=== PATIENT | female | born 1965 | race African-American/Black ===

== ENCOUNTER 2016-12-05 10:00 | Observation (INO) | payer OTHER ==
[2016-12-05 11:06] LABS: #Eosinphils 0.1 thou/uL (0.0-0.7); #Lymphocytes 1.4 thou/uL (1.20-3.40); #Monocytes 0.5 thou/uL (0.11-0.59); #Neutrophils 6.2 thou/uL (1.40-6.50); %Basophils 0.3 % (0.0-1.0); %Eosinophils 1.3 % (0.0-10.0); %Lymphocytes 16.6 % (21.0-51.0); %Monocytes 6.1 % (0.0-10.0); Hematocrit 40.3 % (36.0-47.0); Mean Platelet Volume 8.5 fL (7.4-10.4); Red Blood Cell (RBC) Count 4.41 mill/uL (4.20-5.40); White Blood Cell (WBC) Count 8.2 thou/uL (4.8-10.8)
--- NOTE | 2016-12-05 11:11 | RAD ---
PORTABLE CHEST 1 VIEW: Date: 12/05/16 Time: 1026 hours HISTORY: Altered mental status, dizziness, right arm weakness. FINDINGS/IMPRESSION: Comparison made with exam of 06/25/16. The heart size is borderline. No confluent areas of consolidation, pneumothorax, radha pulmonary ольга ma, or large effusions are seen. There are degenerative changes in the spine. POS: [facility]
[2016-12-05 11:13] LABS: PTT 28.8 SEC (22.9-36.1); Prothrombin Time 12.7 SEC (12.0-14.7)
--- NOTE | 2016-12-05 11:23 | CT ---
CT OF THE BRAIN WITHOUT CONTRAST: Date: 12/05/16 COMPARISON: 08/24/08. HISTORY: Dizziness and right arm weakness. TECHNIQUE: Multiple contiguous axial images were obtained in a CT of the brain without contrast. FINDINGS: The brain is normal in morphology and attenuation without focal lesions or confluent areas of infarc tion. There is no evidence of hydrocephalus, intracranial hemorrhage, or extra-axial fluid collectio n. The calvarium and overlying soft tissues are unremarkable. The visualized paranasal sinuses and mast oid air cells are well aerated. IMPRESSION: No evidence of acute intracranial abnormality. POS: [facility]
[2016-12-05 11:42] LABS: ALT (SGPT) 15 U/L (8-55); Alkaline Phosphatase 62 U/L (40-150); BUN (Urea Nitrogen) 17 mg/dL (9.8-20.1); Bilirubin, Total 0.3 mg/dL (0.2-1.2); CK (CPK) 86 U/L (29-168); Calc. Creatinine Clearance 0 mL/min (70-130); Calcium 8.9 mg/dL (7.8-10.44); Carbon Dioxide 22 mmol/L (22-29); Chloride 106 mmol/L (98-107); Estimated GFR-MDRD 77; Lipase 22 U/L (8-78)
[2016-12-05 11:50] LABS: AST (SGOT) 12 U/L (5-34); Anion Gap 14 mmol/L (10-20); Globulin 3.5 g/dL (2.4-3.5); Protein, Total 7.2 g/dL (6.0-8.3)
--- NOTE | 2016-12-05 13:25 | HP ---
PRIMARY CARE PHYSICIAN: [facility]. REASON FOR ADMISSION: TIA, rule out cerebrovascular accident. HISTORY OF PRESENT ILLNESS: A 51-year-old -[place]er female with a history of hypertension, d yslipidemia, and morbid obesity who presented to emergency room with complaint of right upper extrem ity weakness. The patient is a right handed. This morning she woke up at that time, patient was pe rfectly fine. She was able to do all routine activity. Around 9 a.m. this morning when she went to restroom, she was experiencing right upper extremity weakness. She was not able to hold through ri ght upper extremity. The patient did not have any facial drooping. The patient did not have any sl urred speech. She was feeling a little bit heaviness on her right lower extremity, but she was able to walk without any stumbling. The patient felt a little bit dizzy at home. After that, her sympt oms started, she was not having headache initially, but after emergency room arrival, she was having mild headache. She denies any chest pain, palpitations, and shortness of breath. When she arrived to the emergency room, her weakness on the right upper extremity was completely resolved and she wa s able to function normal. All symptoms resolved in few minutes. At this point, the patient is being admitted to telemetry stroke floor for neuro check and rule out CVA. In the emergency room, this patient had CT brain and chest x-ray, all other routine blood test was n ormal. Patient is also asymptomatic when I saw this patient in the emergency room. REVIEW OF SYSTEMS: The following complete review of systems was negative, unless otherwise mentione d in the HPI or below: Constitutional: Weight loss or gain, ability to conduct usual activities. Skin: Rash, itching. Eyes: Double vision, pain. ENT/Mouth: Nose bleeding, neck stiffness, pain, tenderness. Cardiovascular: Palpitations, dyspnea on exertion, orthopnea. Respiratory: Shortness of breath, wheezing, cough, hemoptysis, fever or night sweats. Gastrointestinal: Poor appetite, abdominal pain, heartburn, nausea, vomiting, constipation, or diar hi. Genitourinary: Urgency, frequency, dysuria, nocturia. Musculoskeletal: Pain, swelling. Neurologic/Psychiatric: Anxiety, depression. Allergy/Immunologic: Skin rash, bleeding tendency. Please see my HPI for pertinent positive and negative. All other review of systems reviewed and neg ative except as mentioned in the HPI. PAST MEDICAL HISTORY: Borderline diabetes. The patient is not on any specific treatment, cardiomyo beverly. As per report, the patient's last ejection fraction is 40%-45%, severe mitral regurgitation, morbid obesity, hypertension, history of nephrolithiasis, dyslipidemia. PAST SURGICAL HISTORY: x3, left knee surgery, kidney stone removal. PAST PSYCHIATRIC HISTORY: Reviewed and negative. SOCIAL HISTORY: Patient lives at home. She is on disability. She drinks alcohol on weekends. She denies any smoking. She denies any other illicit drug abuse. She lives with her daughter. FAMILY HISTORY: Hypertension, diabetes, and coronary artery disease runs among several family membe rs. EMERGENCY ROOM COURSE: The patient is given aspirin 324 mg. ALLERGIES: No known drug allergies. CURRENT HOME MEDICATIONS: Lipitor 10 mg p.o. daily, aspirin 81 mg p.o. daily, Coreg 25 mg p.o. b.i. d., Lasix 40 mg p.o. b.i.d., hydralazine 50 mg twice daily, Imdur 60 mg daily, lisinopril 40 mg at b edtime, and potassium chloride 20 mEq p.o. daily. PHYSICAL EXAMINATION: VITAL SIGNS: Currently, blood pressure 139/100, pulse 78, respiratory rate 18, temperature 97.9, sa turation 98% on room air, and weight 130.8 kilograms. GENERAL: Patient is currently alert and awake, no acute distress. HEAD: Normocephalic, atraumatic. EYES: Pupils round, reactive to light. Extraocular muscles intact. ENT: Oropharynx within normal limits. Moist mucous membranes. No oral lesions. No pharyngeal kari thema, no exudate. NECK: Supple. Range of motion is normal. No meningeal signs of irritation. LUNGS: Clear to auscultation without any rhonchi or rales. CARDIAC: S1, S2 regular without any murmur. ABDOMEN: Morbid obesity limiting examination. No peritoneal sign, no guarding, no rigidity, no tamara ound. BACK: Examination unremarkable, no CVA tenderness. EXTREMITIES: Upper extremity passive movements of all joints are normal. Lower extremity, no edema . Good peripheral pulsation. SKIN: No skin rash. HEMATOLOGICAL SYSTEM: No lymphadenopathy. NEUROLOGIC: Nonfocal examination. Patient is moving all four limbs. Speech normal. Motor and sen sation within normal limits. Reflexes symmetrical. No cerebellar sign. Plantar bilateral flexor. PSYCHIATRIC: Normal affect. HEMATOLOGICAL SYSTEM: No lymphadenopathy. IMAGING AND SIGNIFICANT LABORATORY DATA: 1. CT brain based on my review, no acute intracranial process. Chest x-ray based on my review, no acute cardiopulmonary process, cardiomegaly. 2. CBC: WBC 8.2, hemoglobin 12.9, and platelets 197. INR 0.9. 3. BMP: Sodium 138, potassium 3.8, chloride 106, carbon dioxide 22, BUN 17, creatinine 0.92, gluco se 123, calcium 8.9. 4. LFT: AST 12, ALT 15, alkaline phosphatase 62, albumin 3.7, lipase 22. Cardiac enzymes negative . 5. EKG normal sinus rhythm, left ventricular hypertrophy. Left axis deviation. ASSESSMENT AND PLAN/IMPRESSION: 1. Transient ischemic attack. This patient has mono limb weakness. This patient is right-handed a nd she was having right upper extremity weakness that lasted for few minutes. This patient has [facility] risk factors for stroke including hypertension, dyslipidemia, borderline diabetes, and morbid ob esity. At this point, CT brain is negative and patient's symptoms completely resolved in the emerge ncy room. Most likely this patient has transient ischemic attack. We will rule out cerebrovascular accident. We will keep this patient in the hospital for observation and we will do neuro check sallie ry 4 hourly. We will obtain MRI brain, carotid ultrasound, echocardiography as a part of stroke wor kup. We will check lipid profile tomorrow morning for risk stratification. If the patient remains stable and all investigations remains normal, then we will consider discharging her home tomorrow. Meanwhile, we will continue with aspirin 325 mg p.o. daily, Lipitor 10 mg p.o. at bedtime, hydralazi ne 50 mg twice daily, Coreg 25 mg p.o. b.i.d., Imdur 60 mg p.o. daily, lisinopril 40 mg p.o. daily. We will titrate blood pressure medication while in hospital. 2. Hypertension, currently well controlled. We will continue Coreg 25 mg p.o. twice daily, hydrala zine 50 mg twice daily, isosorbide mononitrate 60 mg p.o. daily, lisinopril 40 mg p.o. at bedtime an d adjust medication as needed. 3. Cardiomyopathy. The patient does have systolic and diastolic dysfunction/heart failure. Dimitris ngo, patient is euvolemic. We will continue Lasix 40 mg p.o. b.i.d. as per home dosage along with C oreg, hydralazine, Imdur, and lisinopril as per home dosage. 4. Moderate mitral regurgitation. The patient is already on Coreg, hydralazine, Imdur and lisinopr il therapy. 5. Dyslipidemia. Check lipid profile tomorrow and continue Lipitor 10 mg p.o. at bedtime. 6. Morbid obesity. Dietary education given, weight loss education given. Healthy lifestyle measur es discussed with the patient. 7. Borderline diabetes. We will check hemoglobin A1c tomorrow. 8. Deep venous thrombosis prophylaxis not needed because we are expecting discharge in 24 hours. 9. Gastrointestinal prophylaxis, Pepcid 20 mg p.o. b.i.d. 10. Code status: The patient is FULL CODE. Patient's daughter is surrogate decision maker. Disposition plan within 24 hours. Plan of care extensively discussed with the patient's family memb er at bedside in the emergency room.
[2016-12-05] MEDS ORDERED: Senokot 8.6 MG TAB PO PRN (14:23)
[2016-12-05] MEDS ORDERED: Ondansetron HCl/PF 4 MG/2 ML Vial IVP PRN (14:23)
[2016-12-05] MEDS ORDERED: Loperamide HCl 2 MG CAP PO PRN (14:23)
[2016-12-05] MEDS ORDERED: Zolpidem Tartrate 5 MG TAB PO PRN (14:23)
[2016-12-05] MEDS ORDERED: Artificial Tears 18 DROP/0.9 ML EA EYE PRN (14:23)
[2016-12-05] MEDS ORDERED: HYDROcodone/Acetaminophen 5/325 mg Tablet PO PRN (14:23)
[2016-12-05] MEDS ORDERED: cloNIDine HCl 0.1 MG TAB PO PRN (14:23)
[2016-12-05] MEDS ORDERED: Ondansetron ODT 4 MG TAB PO PRN (14:23)
[2016-12-05] MEDS ORDERED: Ketorolac Tromethamine 30 MG/ML VIAL IVP PRN (14:23)
[2016-12-05] MEDS ORDERED: Eucerin (Mineral Oil/Petrolatum,White) 30 gm Jar TOP PRN (14:23)
[2016-12-05] MEDS ORDERED: Sodium Chloride 0.65% Nasal 44 ML BOT EA NARE PRN (14:23)
[2016-12-05] MEDS ORDERED: Milk Of Magnesia 30 ML UDCUP PO PRN (14:23)
[2016-12-05] MEDS ORDERED: Diabetic Tussin 200 MG/10 ML UDCUP PO PRN (14:23)
[2016-12-05] MEDS ORDERED: Mag-Al 1200 mg/1200 mg/30 ML UDCUP PO PRN (14:23)
[2016-12-05] MEDS ORDERED: Furosemide 40 MG TAB PO SCH (14:30)
[2016-12-05 14:34] LABS: Bilirubin Negative (Negative); Blood, Urine Negative (Negative); Glucose, Urine (Dipstick) Negative (Negative); Ketone, Urine Negative (Negative); Nitrite Negative (Negative); Protein, Urine (Dipstick) Trace mg/dL (Neg-Trace)
[2016-12-05 15:32] VITALS: BMI 52.0
[2016-12-05] MEDS: Carvedilol 25 MG TAB PO SCH (17:01)
[2016-12-05] MEDS: Acetaminophen 325 MG TAB PO PRN (17:35)
--- NOTE | 2016-12-05 18:42 | ULT ---
EXAM: CAROTID ULTRASOUND 12/05/16 HISTORY: Transient ischemic attack. COMPARISON: None. TECHNIQUE: Sylvester scale, color flow, doppler imaging with spectral waveform analysis performed of the carotid cristy tebral arteries. FINDINGS: RIGHT CAROTID: Intimal thickness of the common carotid artery is 0.10 cm. No significant atherosclerotic disease. P eak systolic velocity of the common carotid artery is 75.3 cm/s. Peak systolic velocity of the inter nal carotid artery is 65.2 cm/s. Systolic ICA/CCA ratio is 0.9. LEFT CAROTID: Intimal thickness of the common carotid artery is 0.10 cm. Peak systolic velocity of the common grossman tid artery is 105.2 cm/s. Peak systolic velocity of the internal carotid artery is 57.0 cm/s. Systol ic ICA/CCA ratio is 0.5. Antegrade flow in bilateral vertebral arteries. IMPRESSION: No sonographic evidence of hemodynamically significant stenosis. POS: [facility]
--- NOTE | 2016-12-05 19:10 | MRI ---
EXAM: BRAIN MRI WITHOUT CONTRAST 12/05/16 HISTORY: Right sided weakness. Transient ischemic attack. COMPARISON: None. TECHNIQUE: Brain MRI is performed without intravenous gadolinium administration. Multisequential, multiplanar i maging is performed. FINDINGS: Central arterial flow voids are maintained. Absent restricted diffusion. Minimal white matter hyperintensities on the axial FLAIR sequence. Adequate aeration of the sinuses and mastoid air cells. No hemorrhage on the axial gradient echo sequence. The calvarium has a normal marrow signal intensity. Midline brain parenchymal structures are unremar kable. IMPRESSION: Absent restricted diffusion. No acute infarct. POS: [facility]
[2016-12-05] MEDS: Famotidine 20 MG TAB PO SCH (20:28)
[2016-12-05] MEDS ORDERED: Lisinopril 20 MG TAB PO SCH (21:00)
[2016-12-05] MEDS ORDERED: Atorvastatin Calcium 10 MG TAB PO SCH (21:00)
[2016-12-06] MEDS: Acetaminophen 325 MG TAB PO PRN (04:04)
[2016-12-06 07:14] LABS: Hemoglobin A1c 5.8 % (4.0-6.0)
[2016-12-06] MEDS ORDERED: Aspirin 325 mg Enteric Coated Tablet PO SCH (09:00)
[2016-12-06] MEDS: Carvedilol 25 MG TAB PO SCH ×2 (10:03→16:02)
[2016-12-06] MEDS: Furosemide 40 MG TAB PO SCH ×2 (10:03→16:02)
[2016-12-06] MEDS: Famotidine 20 MG TAB PO SCH (10:03)
[2016-12-06] MEDS ORDERED: Clopidogrel Bisulfate 75 MG TAB PO SCH (15:45)
[2016-12-06 16:01] VITALS: BP 124/79; TEMP 98.5
--- NOTE | 2016-12-06 17:43 | DIS ---
DATE OF ADMISSION: 12/05/2016 DATE OF DISCHARGE: 12/06/2016 PRIMARY CARE PHYSICIAN: Kyree Narayanan MD DISCHARGE DIAGNOSES: 1. Probable transient ischemic attack. 2. Dyslipidemia. CONDITION OF PATIENT AT THE TIME OF DISCHARGE: Stable. I assessed Ms. Pedroza on the day of discha rge. She denies any chest pain or shortness of breath. Vital signs are stable. S1 and S2 are hear d, regular. Lungs are clear to auscultation bilaterally. Neurologic examination is nonfocal. DISCHARGE MEDICATIONS: Her Lipitor dose was increased to 20 mg at bedtime. Plavix has been started at 75 mg daily. Otherwise, her home medications are continued as dictated on history and physical note from 12/05/2016. HOSPITAL COURSE: Ms. Pedroza is a pleasant 51-year-old lady, who was admitted to [facility] on 12/05/2016 for probable transient ischemic attack. She had right upper extremity weakness. Her symptoms resolved in a few minutes. She did not have recurrence of the symptoms. CT scan of the brain, without contrast, did not reveal any acute intracranial abnormality on 017. She also had MRI of the brain the same day, which did not reveal any acute infarct. Carotid D oppler study on 12/05/2016 did not reveal any hemodynamically significant stenosis. She also had a 2D echocardiogram. The official report is pending. Preliminary report has been called to the floor and indicated that ejection fraction is 50%. She had cholesterol of 235, triglycerides 207, LDL 147, and HDL 47. Her Lipitor dose has been incre ased to 20 mg daily. Because of possible aspirin failure, she has been started on Plavix as well. She is advised to follow up with her primary care provider. I emphasized to her the importance of t aking all the medications regularly. She expressed understanding. Many thanks for allowing me to participate in your patient's care. Please feel free to contact me w ith any questions or concerns. DISCHARGE DESTINATION: Home.
[2016-12-06] MEDS ORDERED: Atorvastatin Calcium 20 MG TAB PO SCH (21:00)
[2016-12-07] MEDS ORDERED: Clopidogrel Bisulfate 75 MG TAB PO SCH (09:00)
== END 2016-12-06 16:29 | disposition home or self-care (01) ==
LOC: ERS 10:00 → 2SE 11:45
PROVIDERS: ADMIT Internal Medicine; ATTEND Internal Medicine
DX: G45.9 Transient cerebral ischemic attack, unspecified (principal); G83.21 Monoplegia of upper limb affecting right dominant side; E78.5 Hyperlipidemia, unspecified; E66.01 Morbid (severe) obesity due to excess calories; R73.03 Prediabetes; I11.9 Hypertensive heart disease without heart failure; I34.0 Nonrheumatic mitral (valve) insufficiency; Z79.82 Long term (current) use of aspirin; Z79.899 Other long term (current) drug therapy; Z68.43 Body mass index [BMI] 50.0-59.9, adult; Z98.890 Other specified postprocedural states; Z87.442 Personal history of urinary calculi
CPT/HCPCS: 36415; 70450; 70551; 71010; 80053; 80061; 81003; 82553; 83036; 83690; 83880; 84443; 84484; 85025; 85610; 85730; 93005; 93306; 93880; G0378

== ENCOUNTER 2017-07-08 09:56 | Emergency (ER) | payer OTHER | END 2017-07-08 11:20 | disposition home or self-care (01) | LOC: ERS 09:56 | DX: K02.9 Dental caries, unspecified (principal); E11.9 Type 2 diabetes mellitus without complications; I11.0 Hypertensive heart disease with heart failure; I50.9 Heart failure, unspecified; Z79.899 Other long term (current) drug therapy; Z79.82 Long term (current) use of aspirin | CPT/HCPCS: 99282 ==

== ENCOUNTER 2017-07-17 07:06 | Emergency (ER) | payer OTHER ==
[2017-07-17] MEDS ORDERED: Ketorolac Tromethamine 30 MG/ML VIAL ONE (07:53)
[2017-07-17] MEDS ORDERED: Cyclobenzaprine 10 MG TAB ONE (07:53)
[2017-07-17] MEDS ORDERED: Ibuprofen 800 MG TAB ONE (07:53)
--- NOTE | 2017-07-17 08:46 | CT ---
CT HEAD WITHOUT CONTRAST: Date: 07/17/17 Multiple axial tomograms obtained of the head without IV enhancement. HISTORY: Fall last night with injury to head. FINDINGS: Ventricles have normal size and position. No evidence of intracranial hemorrhage identified. No mass or edema. Tiny calcification base of brain on the right is felt to be vascular. Paranasal sinuses are well aerated. No evidence of skull fracture. IMPRESSION: No acute abnormality. POS: [facility]
--- NOTE | 2017-07-17 08:52 | CT ---
CT CERVICAL SPINE: Date: 07/17/17 Multiple axial tomograms obtained through the cervical spine with multiplanar reconstruction. HISTORY: Fall with injury to head and neck. Mid neck pain. FINDINGS: Cervical vertebra maintain height and alignment. Severe degenerative hypertrophic changes are seen. T here are prominent anterior bridging osteophytes from the cervical vertebra. There is calcification i n the posterior longitudinal ligament which produces large calcification encroaching into the spinal canal and impinging on the cord. This large calcification in the posterior longitudinal ligament thro ughout the cervical canal produces severe cervical canal stenosis throughout the cervical canal and a ppears to significantly compress the cord. No evidence of acute fracture identified. IMPRESSION: 1. Severe prominent hypertrophic changes of cervical spine. Very bulky calcification of the posterio r longitudinal ligament is seen throughout the cervical canal. This large bulky calcification encroac hes into the spinal canal and compresses the cord. There is severe cord compression seen at the C5, C 6, and C7 levels. 2. No evidence of acute fracture. Findings were discussed with Dr. Nieves by phone. CODE CR. POS: [facility]
--- NOTE | 2017-07-17 09:10 | RAD ---
CHEST 2 VIEWS: Date: 07/17/17 HISTORY: Fall. Chest injury. COMPARISON: 06/25/16. FINDINGS: Cardiac silhouette and pulmonary vasculature are unremarkable. Shallow inspiration accentuates pulmon enrique markings. There is no confluent air space consolidation, pneumothorax, or pleural fluid evident. IMPRESSION: No active cardiopulmonary abnormalities are demonstrated. POS: [facility]
== END 2017-07-17 09:46 | disposition home or self-care (01) ==
LOC: ERS 07:06
DX: S00.03XA Contusion of scalp, initial encounter (principal); S40.011A Contusion of right shoulder, initial encounter; M48.02 Spinal stenosis, cervical region; I11.0 Hypertensive heart disease with heart failure; I50.9 Heart failure, unspecified; Z79.82 Long term (current) use of aspirin; Z79.899 Other long term (current) drug therapy; W07.XXXA Fall from chair, initial encounter
CPT/HCPCS: 70450; 71046; 72125; 96372; J1885

== ENCOUNTER 2017-08-07 08:56 | Outpatient (CLI) | payer OTHER ==
--- NOTE | 2017-08-07 10:04 | CT ---
CT THORACIC SPINE WITHOUT CONTRAST: HISTORY: M48.8X9, posterior longitudinal ligament ossification. Fall. COMPARISON: None. FINDINGS: Visualized portions of the lungs are clear. No pleural effusion. Calcified granuloma of the spleen. Paraspinal musculature is normal. There is severe ossification posterior longitudinal ligament with compromise of the spinal canal. Th ere is narrowing of the spinal canal of less than 4 mm at multiple levels. No acute fracture. No malalignment. There is a posterior disk-osteophyte complex at T11-T12 also na rrowing the signal canal approximately 7 mm. IMPRESSION: Severe spinal canal compromise of the lower cervical spine and upper thoracic spine less than 4 mm. MRI recommended. POS: [facility]
--- NOTE | 2017-08-07 12:19 | MRI ---
CERVICAL SPINE MRI WITHOUT CONTRAST: COMPARISON: 07/17/17. HISTORY: Cervical radiculopathy. Extensive calcification of the posterior longitudinal ligament. Right shoul arnulfo pain. TECHNIQUE: A cervical spine MRI is performed without intravenous Gadolinium administration. Multisequential, mu ltiplanar imaging is performed. FINDINGS: This is an appropriate T1 marrow signal intensity of the cervical vertebrae. Vertebral body height i s maintained. No fracture. No significant STIR hyperintensity to suggest vertebral body edema or li gamentous injury. Extensive ossification along the posterior longitudinal ligament from C2 through T2. Visualized brain parenchyma is unremarkable. There is narrowing of the central spinal canal with def ormity of the cervical cord throughout the cervical spine. T2 hyperintensity suggesting cord malacia is difficult to appreciate. C2-C3: Severe central canal stenosis due to ossification of the posterior longitudinal ligament. Ne ural foramen are patent. C3-C4: Moderate central canal stenosis and deformity of the cord due to ossification of the posterio r longitudinal ligament. Neural foramina are patent. C4-C5: Mild to moderate central canal stenosis due to ossification of the posterior longitudinal lig ament. Mild right foraminal narrowing. The left foramen is patent. C5-C6: Moderate narrowing of the right aspect of the central spinal canal due to ossification of the posterior longitudinal ligament. Deformity of the right hemicord. Mild right foraminal narrowing. Left neural foramen is patent. C6-C7: Broad-based ossification of the posterior longitudinal ligament results in severe central can al stenosis. Moderate bilateral foraminal narrowing. C7-T1: Moderate central canal stenosis due to ossification of the posterior longitudinal ligament. Neural foramen are patent bilaterally. T1-T2: Moderate central canal stenosis due to ossification of the posterior longitudinal ligament. IMPRESSION: Extensive significant central canal stenosis due to ossification of the posterior longitudinal ligame nt. No obvious T2 hyperintensity to suggest cord malacia. POS: [facility]
--- NOTE | 2017-08-07 12:28 | MRI ---
MRI THORACIC SPINE WITHOUT CONTRSAT: History Posterior ligament ossification. COMPARISON: None. CORRELATION: CT thoracic spine 08/07/17 at 9:05 a.m. FINDINGS: There is appropriate T1 marrow signal intensity of the thoracic vertebrae. The vertebral body height is maintained. No fracture. No significant STIR hyperintensity to suggest edema or ligamentous inj ury. Visualized mediastinal structures, lung parenchyma, and solid organs are unremarkable for acute patho logy. Minimal atelectatic change of the lung parenchyma is noted. The thoracic cord has an overall normal signal intensity. There is severe central canal stenosis at T1-T2 secondary to ossification of the posterior longitudinal ligament. There is anterolisthesis of T2 upon T3. Generalized disk bulge with mild central canal stenosis is n oted at T2-T3. At T3-T4, there is mass effect upon the posterior right thecal sac secondary to posterior element hyp ertrophy. The remainder of the thoracic spine does not demonstrate any significant central canal stenosis. Min imal disk bulge at T5-T6. Conus medullaris terminates at the inferior aspect of T11. Neural foramen are patent throughout the thoracic spine. IMPRESSION: Narrowing of the upper thoracic spine as above. POS: [facility]
== END 2017-08-07 08:57 | disposition home or self-care (01) ==
LOC: TBSIIMAG 08:56
PROVIDERS: ATTEND Surgery
DX: M48.8X2 Other specified spondylopathies, cervical region (principal); M48.8X4 Other specified spondylopathies, thoracic region; M48.04 Spinal stenosis, thoracic region; M48.02 Spinal stenosis, cervical region
CPT/HCPCS: 72128; 72141; 72146

== ENCOUNTER 2017-09-23 08:48 | Outpatient (CLI) | payer OTHER ==
[2017-09-23 09:59] LABS: Hemoglobin 12.1 g/dL (12.0-16.0); Mean Corpuscular Hemoglobin 28.9 pg (27.0-31.0); Mean Corpuscular Volume 87.6 fL (78.0-98.0); Mean Platelet Volume 7.8 fL (7.4-10.4); PTT 28.8 SEC (22.9-36.1); Platelet Count 173 thou/uL (130-400); Prothrombin Time 12.9 SEC (12.0-14.7); RBC Distribution Width 12.5 % (11.5-14.5); Red Blood Cell (RBC) Count 4.18 mill/uL (4.20-5.40); White Blood Cell (WBC) Count 5.3 thou/uL (4.8-10.8)
[2017-09-23 10:09] LABS: ALT (SGPT) 20 U/L (8-55); AST (SGOT) 12 U/L (5-34); Albumin 4.1 g/dL (3.5-5.0); Alkaline Phosphatase 64 U/L (40-150); Anion Gap 11 mmol/L (10-20); BUN (Urea Nitrogen) 16 mg/dL (9.8-20.1); Bilirubin, Total 0.4 mg/dL (0.2-1.2); Calc. Creatinine Clearance 0 mL/min (70-130); Calcium 9.3 mg/dL (7.8-10.44); Carbon Dioxide 27 mmol/L (22-29); Cardiac Risk 3.9 (Less than 4.5); Chloride 106 mmol/L (98-107); Cholesterol 202 mg/dl (< 200 Desired); Estimated GFR-MDRD 82; Glucose 114 mg/dL (70-105); HDL Cholesterol 52 mg/dL (>60 Neg Risk); LDL Cholesterol, Calculated 118 mg/dL; Potassium 3.9 mmol/L (3.5-5.1); Protein, Total 7.1 g/dL (6.0-8.3); Sodium 140 mmol/L (136-145); Triglycerides 162 mg/dL (Less than 150)
--- NOTE | 2017-09-23 15:31 | EKG ---
Test Reason : Blood Pressure : / mmHG Vent. Rate : 073 BPM Atrial Rate : 073 BPM P-R Int : 176 ms QRS Dur : 104 ms QT Int : 418 ms P-R-T Axes : 044 -24 -06 degrees QTc Int : 460 ms Normal sinus rhythm Non-specific intra-ventricular conduction delay Voltage criteria for left ventricular hypertrophy Abnormal ECG Confirmed by LIZ MORENO ([id number]) on 09/23/2017 3:31:21 PM Referred By: CHRISTOPHER Confirmed By:LIZ MORENO
== END 2017-09-23 08:49 | disposition home or self-care (01) ==
LOC: LABBT 08:48
PROVIDERS: ATTEND Internal Medicine Cardiovascular Disease
DX: Z01.818 Encounter for other preprocedural examination (principal); R93.1 Abnormal findings on diagnostic imaging of heart and coronary circulation
CPT/HCPCS: 80053; 80061; 85027; 85610; 85730; 93005; 93010

== ENCOUNTER 2017-09-24 05:45 | Day surgery (SDC) | payer OTHER ==
[2017-09-23 09:14] VITALS: BMI 54.1
[2017-09-24] MEDS ORDERED: Lidocaine 1% (PF) 30 ML VIAL ONE (08:42)
[2017-09-24] MEDS ORDERED: Nitroglycerin 100MG/250ML BOT 250 ML ONE (09:23)
[2017-09-24] MEDS ORDERED: Heparin 10,000 UNITS/1 ML VIAL ONE (09:23)
[2017-09-24] MEDS ORDERED: Verapamil 5 MG/2 ML VIAL ONE (09:23)
[2017-09-24] MEDS ORDERED: Midazolam HCl 2 mg/2 ml Vial ONE (09:34)
[2017-09-24] MEDS ORDERED: Fentanyl 100 MCG/2 ML VIAL ONE ×2 (09:34→12:10)
[2017-09-24] MEDS ORDERED: Acetaminophen/Codeine 30-300mg Tablet ONE (11:36)
[2017-09-24] MEDS ORDERED: cloNIDine 0.1 MG TAB ONE (11:49)
[2017-09-24] MEDS ORDERED: Fentanyl 100 MCG/2 ML VIAL SLOW IVP PRN (12:37)
[2017-09-24] MEDS ORDERED: Acetaminophen/Codeine 30-300mg Tablet PO PRN ×2 (12:37→12:38)
[2017-09-24] MEDS ORDERED: Zolpidem Tartrate 5 MG TAB PO PRN (12:38)
[2017-09-24] MEDS ORDERED: cloNIDine 0.1 MG TAB PO PRN (12:39)
[2017-09-24] MEDS ORDERED: Sodium Chloride 0.9% 1,000 ML IV SCH (12:45)
[2017-09-24] MEDS ORDERED: Iopamidol 370 76% 50 ML VIAL FS ONE (12:46)
[2017-09-24] MEDS ORDERED: Iopamidol 370 76% 100 ML VIAL ONE (12:46)
--- NOTE | 2017-09-24 16:28 | EKG ---
Test Reason : POST STENT Blood Pressure : / mmHG Vent. Rate : 076 BPM Atrial Rate : 076 BPM P-R Int : 178 ms QRS Dur : 096 ms QT Int : 434 ms P-R-T Axes : 049 -23 013 degrees QTc Int : 488 ms Normal sinus rhythm Voltage criteria for left ventricular hypertrophy Nonspecific ST abnormality Prolonged QT Abnormal ECG Confirmed by LIZ MORENO ([id number]) on 09/24/2017 4:27:51 PM Referred By: CHRISTOPHER Confirmed By:LIZ MORENO
== END 2017-09-24 16:03 | disposition home or self-care (01) ==
LOC: CCL 05:45
PROVIDERS: ATTEND Internal Medicine Cardiovascular Disease
PROC: 02703DZ Dilation of Coronary Artery, One Artery with Intraluminal Device, Percutaneous Approach (ICD-10-PCS; principal; 2017-09-24)
PROC: B2111ZZ Fluoroscopy of Multiple Coronary Arteries using Low Osmolar Contrast (ICD-10-PCS; principal; 2017-09-24)
PROC: 4A023N7 Measurement of Cardiac Sampling and Pressure, Left Heart, Percutaneous Approach (ICD-10-PCS; principal; 2017-09-24)
DX: I25.10 Atherosclerotic heart disease of native coronary artery without angina pectoris (principal); I11.0 Hypertensive heart disease with heart failure; I50.9 Heart failure, unspecified; E78.5 Hyperlipidemia, unspecified; E11.9 Type 2 diabetes mellitus without complications; I42.0 Dilated cardiomyopathy; I34.0 Nonrheumatic mitral (valve) insufficiency; E66.01 Morbid (severe) obesity due to excess calories; Z68.43 Body mass index [BMI] 50.0-59.9, adult; Z79.82 Long term (current) use of aspirin; Z79.899 Other long term (current) drug therapy
CPT/HCPCS: 80053; 80061; 85027; 85347; 85610; 85730; 92928; 93005; 93010; 93458; 93798; 96374; 99152; 99153; C1769; C1876; J1644; J2001; J2250; J3010

== ENCOUNTER 2017-12-31 09:11 | Outpatient (CLI) | payer OTHER ==
[2017-12-31 10:17] LABS: Hemoglobin 12.4 g/dL (12.0-16.0); Mean Corpuscular HGB CONC 31.8 g/dL (32.0-36.0); Mean Corpuscular Hemoglobin 28.9 pg (27.0-31.0); Platelet Count 186 thou/uL (130-400); Red Blood Cell (RBC) Count 4.29 mill/uL (4.20-5.40)
[2017-12-31 10:36] LABS: PTT 29.7 SEC (22.9-36.1); Prothrombin Time 12.8 SEC (12.0-14.7)
[2017-12-31 10:38] LABS: Anion Gap 10 mmol/L (10-20); BUN (Urea Nitrogen) 11 mg/dL (9.8-20.1); Calc. Creatinine Clearance 0 mL/min (70-130); Calcium 8.7 mg/dL (7.8-10.44); Carbon Dioxide 26 mmol/L (22-29); Chloride 106 mmol/L (98-107); Estimated GFR-MDRD 88; Glucose 104 mg/dL (70-105); Potassium 4.3 mmol/L (3.5-5.1); Sodium 138 mmol/L (136-145)
--- NOTE | 2018-01-02 08:31 | EKG ---
Test Reason : Blood Pressure : / mmHG Vent. Rate : 070 BPM Atrial Rate : 070 BPM P-R Int : 178 ms QRS Dur : 098 ms QT Int : 428 ms P-R-T Axes : 048 -25 -07 degrees QTc Int : 462 ms Normal sinus rhythm Voltage criteria for left ventricular hypertrophy Prolonged QT Abnormal ECG When compared with ECG of 24-SEP-2017 10:44, No significant change was found Confirmed by ANGELITA GAN ([id number]) on 01/02/2018 8:30:36 AM Referred By: PARUL Confirmed By:ANGELITA GAN
== END 2017-12-31 09:12 | disposition home or self-care (01) ==
LOC: LABBT 09:11
PROVIDERS: ATTEND Surgery
DX: Z01.818 Encounter for other preprocedural examination (principal); G95.9 Disease of spinal cord, unspecified; M48.8X9 Other specified spondylopathies, site unspecified
CPT/HCPCS: 80048; 85027; 85610; 85730; 93005; 93010

== ENCOUNTER 2017-12-31 09:15 | Inpatient (IN) | payer OTHER ==
[2018-01-07] MEDS ORDERED: Bacitracin Zinc Ointment 30 gm TUBE ONE (06:45)
[2018-01-07] MEDS ORDERED: Sodium Chloride 0.9% 10 ML ONE (06:45)
[2018-01-07] MEDS ORDERED: Thrombin 5000 UNITS/5 ML VIAL ONE (06:45)
[2018-01-07] MEDS ORDERED: CEFAZOLIN/Water 2 GM/20 ML SYRINGE ONE (07:08)
[2018-01-07] MEDS ORDERED: Fentanyl 250 MCG/5 ML VIAL ONE (07:26)
[2018-01-07] MEDS ORDERED: PHENYLEPHRINE-NS 100 MCG/ML 10 ML SYRINGE ONE (11:31)
[2018-01-07] MEDS ORDERED: Ondansetron PF 4 MG/2 ML Vial ONE (11:31)
[2018-01-07] MEDS ORDERED: Ketorolac Tromethamine 30 MG/ML VIAL ONE (11:31)
[2018-01-07] MEDS ORDERED: Lidocaine 1% PF 5 ML VIAL ONE (11:31)
[2018-01-07] MEDS ORDERED: Glycopyrrolate 0.2 MG/ML 5 ML SYRINGE ONE (11:31)
[2018-01-07] MEDS ORDERED: PROPOFOL 200 MG/20 ML VIAL ONE (11:31)
--- NOTE | 2018-01-07 12:32 | OP ---
SURGEON: Garth Hung M.D. REORDERING CLERK: Wilfred Asher PA-C. WOUND: Type 1 wound. 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 PROCEDURE: 1. C2, C3, C4, C5, C6, C7, T1 laminectomies, partial facetectomies, foraminotomies over the C2-T1 segments. 2. Screw danitza fixation, C2, C3, C4, C5, C6, C7, T1, T2 construct with screw danitza fixation for stabilization. 3. Arthrodesis with fusion C2-C3, C3-C4, C4-C5, C5-C6, C6-C7, C7-T1, T1-T2 for arthrodesis with local bone autograft obtained from same incision and allograft. PROCEDURE: After informed consent was obtained from the patient, the patient was brought to OR. Proper patient pause and the identification was carried out. She was placed in excellent endotracheal anesthesia and Smith sridevi was secured to her skull. She was then positioned prone and all appropriate points were padded, and her head secured in cervical spine, neutral position to the Smith headholder. We clipped a small amount of hair in the suboccipital region and I aaron out a line from the C2-T2 segments. This region was sterilely cleansed, prepared, and draped. Proper patient pause and identification was carried out. The wound was then opened with a combination of sharp, monopolar and blunt dissection, C2, C3, C4, C5, C6, C7, T1, T2 dorsal spines, lamina and facet complexes were all exposed. We were careful to preserve the C1-C2 and T2-T3 facet complexes. Localization film confirmed our area of interest. We then performed screw danitza fixation at C2, C3, C4, C5, C6, T1, T2. I skipped the C7 segments but did bridge the danitza across that segment to avoid screw head overlap when transitioning from lateral mass to pedicle screws at the cervicothoracic junction. Rods were placed and final tightening occurred. A laminectomy at C2, C3, C4, C5, C6, C7, T1 was performed with excellent decompression of the common dural tube from C2 all the way down to the top of T2. There was no spinal fluid leak. Hemostasis was maximized throughout. The lateral masses were decorticated along with the transverse processes at C2, C3, C4, C5, C6, C7, T1, and T2 bilaterally. Local bone autograft obtained in the same incision. Allograft was laid over this posterior lateral region for fusion arthrodesis from C2 all the way down to T2. The wound was copiously irrigated and hemostasis maximized. Vancomycin powder was sprinkled in the wound. The wound was closed in anatomic layers. The patient was then emerged from anesthesia. MTDD
[2018-01-07] MEDS ORDERED: Bisacodyl 10 MG SUPP PR PRN (13:26)
[2018-01-07] MEDS ORDERED: Mag-Al 1200 mg/1200 mg/30 ML UDCUP PO PRN (13:26)
[2018-01-07] MEDS ORDERED: Promethazine HCl 25 MG/ML VIAL IM PRN ×2 (13:26→13:36)
[2018-01-07] MEDS ORDERED: Milk Of Magnesia 30 ML UDCUP PO PRN (13:26)
[2018-01-07] MEDS ORDERED: Fleet Enema 133 ML BOT PR PRN (13:26)
[2018-01-07] MEDS ORDERED: Acetaminophen/Codeine 30-300mg Tablet PO PRN (13:26)
[2018-01-07] MEDS ORDERED: Furosemide 40 MG TAB PO PRN (13:28)
[2018-01-07] MEDS ORDERED: cloNIDine 0.1 MG TAB PO PRN (13:28)
[2018-01-07] MEDS ORDERED: Fentanyl 100 MCG/2 ML VIAL ONE (13:35)
[2018-01-07] MEDS ORDERED: Ondansetron HCl/PF 4 MG/2 ML Vial IVP PRN (13:36)
[2018-01-07] MEDS ORDERED: Promethazine HCl 25 MG/ML VIAL SLOW IVP PRN (13:36)
[2018-01-07] MEDS ORDERED: hydrALAZINE 20 MG/ML VIAL ONE (13:54)
[2018-01-07] MEDS ORDERED: CEFAZOLIN/Water 2 GM/20 ML SYRINGE SLOW IVP SCH (14:00)
[2018-01-07] MEDS ORDERED: Labetalol HCl 100 MG/20 ML VIAL ONE (14:09)
[2018-01-07 14:40] VITALS: BMI 50.6
[2018-01-07] MEDS: hydrALAZINE 25 MG TAB PO SCH ×2 (15:44→20:00)
[2018-01-07] MEDS ORDERED: hydrALAZINE 20 MG/ML VIAL SLOW IVP PRN (16:49)
[2018-01-07] MEDS: Sodium Chloride 0.9% 1,000 ML IV SCH (18:11)
[2018-01-07] MEDS: Carvedilol 25 MG TAB PO SCH (19:59)
[2018-01-07] MEDS: Lisinopril 20 MG TAB PO SCH (19:59)
[2018-01-07] MEDS: Atorvastatin Calcium 10 MG TAB PO SCH (20:00)
[2018-01-07] MEDS: CEFAZOLIN/Water 2 G/20 ML 2 GM in Pre-Filled Syringe 1 EACH SLOW IVP SCH (21:59)
[2018-01-07] MEDS ORDERED: CEFAZOLIN 2 GM/50 ML-DEXTROSE 50 ML IVPB SCH (22:00)
[2018-01-07] MEDS: traMADol HCl 50 MG TAB PO PRN (23:24)
[2018-01-07] MEDS: tiZANidine HCl 4 MG TAB PO PRN (23:24)
--- NOTE | 2018-01-07 23:33 | CON ---
DATE OF CONSULTATION: 01/07/2018 ATTENDING PHYSICIAN: Dr. Hung. PRIMARY CARE PHYSICIAN: Dr. Kyree Narayanan. REASON FOR CONSULTATION: Medical management. REASON FOR ADMISSION: Elective cervical laminectomy and fusion. HISTORY OF PRESENT ILLNESS: Ms. Pedroza is a pleasant 52-year-old female who was admitted to the hospital for an elective cervical laminectomy and fusion. She had failed conservative measures and elected to have surgery. Currently, when I see her, she is post-procedure and her main complaint is having some sinus congestion and drainage, but otherwise she says that she feels okay. She denies any headaches, no chest pain, no shortness of breath, no PND, no orthopnea, no nausea, no vomiting. She has not had any problems with leg swelling or edema. She does have a history of hypertension, which has been controlled on medications and she has a history of borderline diabetes but has not been diagnosed with radha diabetes. REVIEW OF SYSTEMS: All systems are reviewed and are negative except for that mentioned in the history of present illness. PAST MEDICAL HISTORY: Significant for hypertension, hyperlipidemia, morbid obesity with a body mass index of 50, severe mitral regurgitation, nephrolithiasis, and dyslipidemia. PAST SURGICAL HISTORY: She has had a x3, left knee surgery as well as kidney stone removal. ALLERGIES: No known drug allergies. SOCIAL HISTORY: She is single. She is a nonsmoker, nondrinker. She has 2 living children. FAMILY HISTORY: Significant for hypertension, diabetes, and heart disease. CURRENT MEDICATIONS: Include aspirin 81 mg daily, furosemide 40 mg daily, potassium chloride 20 mEq daily, Imdur 30 mg daily, Carvedilol 25 mg twice a day , hydralazine 25 mg t.i.d., Lipitor 40 mg at bedtime, clonidine 0.1 mg at bedtime, and Brilinta 1 mg twice a day. PHYSICAL EXAMINATION: GENERAL: She is alert and oriented. She appears to be in no acute distress. VITAL SIGNS: Blood pressure was 153/88, heart rate 109, respiratory rate of 22. She is afebrile. HEENT: Pupils are equal, round, and reactive. Extraocular muscles are intact. Her sclerae anicteric. Throat: There is no erythema, no exudates. NECK: No adenopathy, no bruits. LUNGS: Clear to auscultation. There is no wheezing, no rales. CARDIOVASCULAR: She had a normal S1 and S2. No S3 or S4. No murmurs, clicks, or rubs. ABDOMEN: Obese, soft, it is nontender, nondistended. Positive for bowel sounds. There is no rebound, no guarding. EXTREMITIES: There is no edema, no calf tenderness, no joint effusion or warmth. NEUROLOGIC: Grossly intact. Difficult to assess. She has a C-collar in place , but her muscle strength in her upper and lower extremities is intact. SKIN AND INTEGUMENT: No skin changes. No rash. LABORATORY DATA: She had lab work done on 12/31, which was reviewed with a white blood cell count being 5, hemoglobin 12.4, hematocrit is 39, platelet count is 186. Sodium 138, potassium 4.3, chloride is 106, CO2 is 26, BUN of 11 , creatinine 0.82, glucose is 104. ASSESSMENT AND PLAN: This is a pleasant 52-year-old female who was admitted for an elective cervical laminectomy and fusion. She is post-procedure and clinically stable. With regards to blood pressure, which is 1. Hypertension. We will continue her usual home medications as it appears as if she has been allowed to take n.p.o. as well as continue p.r.n. clonidine as well as hydralazine. 2. Dyslipidemia. Continue her atorvastatin. 3. Morbid obesity. Her obesity is severe with a BMI of [address] some risk to her recovery, making her high risk for complications. We will need to continue deep venous thrombosis prophylaxis, aggressive pulmonary toilet and incentive spirometry. 4. Coronary Artery Disease with recent bare metal STENT- Continue aspirin, but she will not need Brillinta, as she is over one month out from the procedure. We will be happy to follow along with you in the care of this very nice lady. YE
[2018-01-08] MEDS: CEFAZOLIN/Water 2 G/20 ML 2 GM in Pre-Filled Syringe 1 EACH SLOW IVP SCH (05:00)
[2018-01-08] MEDS: Sodium Chloride 0.9% 1,000 ML IV SCH ×2 (06:07→19:18)
[2018-01-08] MEDS: hydrALAZINE 25 MG TAB PO SCH ×3 (08:38→20:47)
[2018-01-08] MEDS: Carvedilol 25 MG TAB PO SCH ×2 (08:39→20:47)
[2018-01-08 08:44] LABS: #Lymphocytes 0.9 thou/uL (1.20-3.40); #Monocytes 0.6 thou/uL (0.11-0.59); #Neutrophils 7.2 thou/uL (1.40-6.50); %Basophils 0.1 % (0.0-1.0); %Eosinophils 0.1 % (0.0-10.0); %Lymphocytes 9.9 % (21.0-51.0); %Monocytes 6.9 % (0.0-10.0); Mean Corpuscular HGB CONC 31.5 g/dL (32.0-36.0); Mean Corpuscular Volume 92.3 fL (78.0-98.0); Mean Platelet Volume 8.6 fL (7.4-10.4); Platelet Count 157 thou/uL (130-400); RBC Distribution Width 12.2 % (11.5-14.5); Red Blood Cell (RBC) Count 3.79 mill/uL (4.20-5.40); White Blood Cell (WBC) Count 8.7 thou/uL (4.8-10.8)
[2018-01-08] MEDS ORDERED: Potassium Chloride 20 MEQ TAB PO SCH (09:00)
[2018-01-08 09:06] LABS: Anion Gap 12 mmol/L (10-20); BUN (Urea Nitrogen) 12 mg/dL (9.8-20.1); Calc. Creatinine Clearance 139 mL/min (70-130); Calcium 7.7 mg/dL (7.8-10.44); Carbon Dioxide 21 mmol/L (22-29); Chloride 109 mmol/L (98-107); Estimated GFR-MDRD 72; Glucose 167 mg/dL (70-105); Potassium 3.9 mmol/L (3.5-5.1); Sodium 138 mmol/L (136-145)
--- NOTE | 2018-01-08 10:55 | PRG ---
DATE OF SERVICE: 01/08/2018 Ms. 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 Obviously, we have been dealing with significant muscle sp asm. I wanted her in the ICU given her cardiac history and her risk factors. We are working on cont rolling her pain. When she sat up, she did have chest pain and as such, we are working with our [facility] colleagues in regards to cardiac workup. I will initiate a baby aspirin as she had a stent place d just 6 weeks ago and is typically on aspirin and Brilinta. I do not feel comfortable; however, ini tiating Brilinta at this point. She moves all extremities to command with generalized quadriparesis, but does move all extremities in an antigravity fashion such as wiggling her fingers and toes. We w ill obtain an ultrasound of the lower extremities today. We will likely keep her in the ICU.
[2018-01-08] MEDS: Aspirin 81 mg Enteric Coated Tablet PO SCH (12:04)
[2018-01-08] MEDS: HYDROcodone/Acetaminophen 7.5/325 mg Tablet PO PRN ×3 (12:05→20:53)
[2018-01-08] MEDS ORDERED: Labetalol HCl 100 MG/20 ML VIAL SLOW IVP PRN (12:10)
--- NOTE | 2018-01-08 12:12 | PDOC.PN ---
- Subjective Encounter Start Date: 01/08/18 Encounter Start Time: 12:10 Ms. Pedroza was seen today in follow-up of medical management of HTN and CAD post C-spine surgery. She denies any chest pain currently. She denies any dyspnea. - Objective MAR Reviewed: Yes Vital Signs & Weight: Vital Signs (12 hours) BP Pulse Ox 01/08/18 08:38 180/110 H 01/08/18 08:00 93 L 01/08/18 07:40 98 Weight Weight 295 lb 3.183 oz Most Recent Monitor Data Heart Rate from ECG 94 NIBP 154/79 NIBP BP-Mean 104 Respiration from ECG 21 SpO2 96 I&O: 01/07/18 01/08/18 01/09/18 06:59 06:59 06:59 Intake Total 2681 Output Total 1700 400 Balance 981 -400 Result Diagrams: 01/08/18 08:37 01/08/18 08:36 Phys Exam - Physical Examination HEENT: PERRLA Respiratory: no wheezing, no rales + rhonchi, and decreased breath sounds at the bases Cardiovascular: RRR, no significant murmur, no rub no gallop Gastrointestinal: soft, non-tender, no distention, positive bowel sounds Musculoskeletal: pulses present, edema present trace pedal edema Psychiatric: normal affect, A&O x 3 Dx/Plan (1) HTN (hypertension) Code(s): I10 - ESSENTIAL (PRIMARY) HYPERTENSION Status: Chronic (2) Coronary artery disease Code(s): I25.10 - ATHSCL HEART DISEASE OF [place] CORONARY ARTERY W/O ANG PCTRS Status: Chronic (3) Dyslipidemia Code(s): E78.5 - HYPERLIPIDEMIA, UNSPECIFIED Status: Chronic (4) Obesity, morbid Code(s): E66.01 - MORBID (SEVERE) OBESITY DUE TO EXCESS CALORIES Status: Chronic (5) Status post cervical spinal fusion Status: Acute - Plan * HTN- blood pressure has been elevated- but this may be due to pain. It is trending down, and the latest was 150/93. Will continue her home medications, and have Hydralazine, and Clonidine and Labetalol as needed. * CAD- stable- she had a bare metal STENT placed in September of this year. She does not require Brillinta, and continue aspirin daily as you are doing * Morbid Obesity- Life threatening- continue aggressive pulmonary toilet, and incentive spirometry * Dyslipidemia- stable * S/P C-Spine multi-level laminectomy, and fusion- managed by Neurosurgery
[2018-01-08] MEDS: CEFAZOLIN 2 GM/50 ML-DEXTROSE 50 ML IVPB SCH ×2 (13:43→20:46)
--- NOTE | 2018-01-08 17:28 | ULT ---
BILATERAL VENOUS DUPLEX ULTRASOUND INCLUDING COLOR AND SPECTRAL DOPPLER IMAGIN01/08/18 HISTORY: 52-year-old female with minimal leg edema. Exam performed from groin to ankle including visualized greater saphenous, common femoral, superficia l femoral, profunda femoral, popliteal, trifurcation, and posterior tibial vein regions. There is pha sic flow at all levels with normal compressibility and normal augmentation. No intraluminal thrombus. IMPRESSION: No evidence for deep venous thrombosis. POS: MARIANO
[2018-01-08] MEDS: Acetaminophen 325 MG TAB PO PRN (19:05)
[2018-01-08] MEDS: Lisinopril 20 MG TAB PO SCH (20:47)
[2018-01-08] MEDS: Atorvastatin Calcium 10 MG TAB PO SCH (20:47)
[2018-01-08] MEDS: tiZANidine HCl 4 MG TAB PO PRN (20:53)
[2018-01-09] MEDS: HYDROcodone/Acetaminophen 7.5/325 mg Tablet PO PRN ×4 (03:10→19:23)
[2018-01-09] MEDS: tiZANidine HCl 4 MG TAB PO PRN ×3 (03:10→21:56)
[2018-01-09] MEDS: CEFAZOLIN 2 GM/50 ML-DEXTROSE 50 ML IVPB SCH ×3 (05:35→22:00)
[2018-01-09] MEDS: Carvedilol 25 MG TAB PO SCH ×2 (08:16→21:57)
[2018-01-09] MEDS: hydrALAZINE 25 MG TAB PO SCH ×3 (08:16→21:56)
[2018-01-09] MEDS: Aspirin 81 mg Enteric Coated Tablet PO SCH (08:17)
--- NOTE | 2018-01-09 09:23 | PRG ---
DATE OF SERVICE: 01/09/2018 SUBJECTIVE: Ms. Pedroza is postop day #2 following cervical laminectomy and fusion posteriorly. She is having still a significant amount of pain around the surgical site, which is to be expected. Her pain has been moderately well controlled with oral [place] and IV pain medications. She has been up a nd out of bed to the bedside commode with the assist and has tolerated this well. I do think as long as there is no approaches from our Medicine colleagues, she can certainly be transferred to the [facility] floor later today and we will continue to follow from there. She will need extensive PT, OT and rehabilitation workup, we will depend on our case management colleagues for this purpose.
[2018-01-09] MEDS: Sodium Chloride 0.9% 1,000 ML IV SCH (11:03)
--- NOTE | 2018-01-09 11:28 | PDOC.PN ---
- Subjective Encounter Start Date: 01/09/18 Encounter Start Time: 11:25 Subjective: ngs notes rev, tatiana ovn, no new c/o, seated in chair with c collar in place -: c/o pain at surg site and wants to know when she will be moved back to the -: bed (she has been in chair x10 min) pain meds working, wearing off fast - Objective Vital Signs & Weight: Vital Signs (12 hours) Pulse BP 01/09/18 08:16 91 159/90 H Weight Weight 295 lb 3.183 oz Most Recent Monitor Data Heart Rate from ECG 85 NIBP 165/99 NIBP BP-Mean 121 Respiration from ECG 15 SpO2 93 I&O: 01/08/18 01/09/18 01/10/18 06:59 06:59 06:59 Intake Total 2681 3092 Output Total 1700 2090 Balance 981 1002 Result Diagrams: 01/08/18 08:37 01/08/18 08:36 Phys Exam - Physical Examination Constitutional: NAD c collar in place, seated in chair HEENT: PERRLA, moist MMs Respiratory: no wheezing, no rales, no rhonchi Cardiovascular: RRR, no significant murmur, no rub pulses 2+ b/l UE Gastrointestinal: soft, non-tender, positive bowel sounds Musculoskeletal: pulses present Psychiatric: A&O x 3 flat affect Dx/Plan - Plan Dx/Plan (1) HTN (hypertension) Code(s): I10 - ESSENTIAL (PRIMARY) HYPERTENSION Status: Chronic stable continue home regimen and pain ctrl (2) Coronary artery disease Code(s): I25.10 - ATHSCL HEART DISEASE OF [place] CORONARY ARTERY W/O ANG PCTRS Status: Chronic stable cont asa (3) Dyslipidemia Code(s): E78.5 - HYPERLIPIDEMIA, UNSPECIFIED Status: Chronic \ stable (4) Obesity, morbid Code(s): E66.01 - MORBID (SEVERE) OBESITY DUE TO EXCESS CALORIES Status: Chronic stable cont ICS, pulmonary toilet will need o/p f/u for obesity (5) Status post cervical spinal fusion Status: Acute PT OT pain control as per neurosurg ok for transfer to med floor d/w pt @ bedside, d/w bedside nsg
--- NOTE | 2018-01-09 20:20 | PRG ---
DATE OF SERVICE: 01/09/2018 Ms. Pedroza continues to recover from posterior cervical decompression and fusion. 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 She is doing bebo rly well today, but reports fairly significant postoperative pain. The plan will be to transition he r to the floor and work towards disposition planning.
[2018-01-09] MEDS: traMADol HCl 50 MG TAB PO PRN (21:56)
[2018-01-09] MEDS: Lisinopril 20 MG TAB PO SCH (21:56)
[2018-01-09] MEDS: Atorvastatin Calcium 10 MG TAB PO SCH (21:57)
[2018-01-10] MEDS: HYDROcodone/Acetaminophen 7.5/325 mg Tablet PO PRN ×3 (02:16→17:27)
[2018-01-10] MEDS: CEFAZOLIN 2 GM/50 ML-DEXTROSE 50 ML IVPB SCH ×2 (05:19→15:14)
[2018-01-10] MEDS: tiZANidine HCl 4 MG TAB PO PRN ×3 (05:20→21:34)
[2018-01-10] MEDS: hydrALAZINE 25 MG TAB PO SCH ×3 (08:40→21:36)
[2018-01-10] MEDS: Carvedilol 25 MG TAB PO SCH ×2 (08:41→21:36)
[2018-01-10] MEDS: Aspirin 81 mg Enteric Coated Tablet PO SCH (08:41)
--- NOTE | 2018-01-10 11:08 | PRG ---
DATE OF SERVICE: 01/10/2018 SUBJECTIVE: Ms. Pedroza has been transferred to the floor. Her pain is much better controlled this morning. She has been resting well overnight. She is more conversant. At this time, we are waiting on disposition planning.
--- NOTE | 2018-01-10 11:17 | PRG ---
DATE OF SERVICE: 01/10/2018 Ms. Pedroza is now hospital day 3 status post posterior cervical decompression and fusion for cervica l spondylitic myelopathy. Ms. Pedroza was transferred from the unit to the floor yesterday. We will continue to engage physical therapy and occupational therapy as well as maintain adequate pain contr ol. We are working towards appropriate disposition planning at this point.
[2018-01-10] MEDS: traMADol HCl 50 MG TAB PO PRN ×2 (12:19→21:35)
[2018-01-10] MEDS: Acetaminophen 325 MG TAB PO PRN (12:19)
--- NOTE | 2018-01-10 17:21 | PDOC.PN ---
- Subjective Encounter Start Date: 01/10/18 Encounter Start Time: 17:20 Subjective: nsg notes rev, tatiana ovn, no new c/o, pain is somewhat improved, k pad -: is helping significantly. has been able to participate in PT -: wants to know if she can get insurance approval for a hospital bed - Objective Vital Signs & Weight: Vital Signs (12 hours) Temp Pulse Resp BP BP Pulse Ox Pulse Ox 01/10/18 15:28 98.8 F 78 20 107/70 95 01/10/18 15:13 75 114/71 01/10/18 11:15 98 F 75 20 114/71 96 01/10/18 09:07 92 L 01/10/18 08:40 76 120/75 01/10/18 08:00 94 L 01/10/18 07:33 98.2 F 76 24 H 120/75 94 L Weight Weight 295 lb 3.183 oz Most Recent Monitor Data Heart Rate from ECG 84 NIBP 159/92 NIBP BP-Mean 114 Respiration from ECG 15 SpO2 94 I&O: 01/09/18 01/10/18 01/11/18 06:59 06:59 06:59 Intake Total 3092 1550 Output Total 2090 900 Balance 1002 650 Result Diagrams: 01/08/18 08:37 01/08/18 08:36 Phys Exam - Physical Examination lying in hospital bed Dx/Plan - Plan - Physical Examination Constitutional: NAD c collar in place, seated in chair HEENT: PERRLA, moist MMs Respiratory: no wheezing, no rales, no rhonchi Cardiovascular: RRR, no significant murmur, no rub pulses 2+ b/l UE Gastrointestinal: soft, non-tender, positive bowel sounds Musculoskeletal: pulses present Psychiatric: A&O x 3 flat affect Dx/Plan - Plan Dx/Plan (1) HTN (hypertension) Code(s): I10 - ESSENTIAL (PRIMARY) HYPERTENSION Status: Chronic stable continue home regimen and pain ctrl (2) Coronary artery disease Code(s): I25.10 - ATHSCL HEART DISEASE OF [place] CORONARY ARTERY W/O ANG PCTRS Status: Chronic stable cont asa (3) Dyslipidemia Code(s): E78.5 - HYPERLIPIDEMIA, UNSPECIFIED Status: Chronic \ stable (4) Obesity, morbid Code(s): E66.01 - MORBID (SEVERE) OBESITY DUE TO EXCESS CALORIES Status: Chronic stable cont ICS, pulmonary toilet will need o/p f/u for obesity (5) Status post cervical spinal fusion Status: Acute PT OT pain control as per neurosurg ok for transfer to med floor d/w pt @ bedside c/s to CM as per pt request Review of Systems - Medications/Allergies Allergies/Adverse Reactions: Allergies Allergy/AdvReac Type Severity Reaction Status Date / Time No Known Drug Allergies Allergy Verified 12/31/17 09:22 Medications: Current Medications Acetaminophen (Tylenol) 650 mg PO Q4H PRN PRN Reason: Headache/Fever or Pain Last Admin: 01/10/18 12:19 Dose: 650 mg Acetaminophen/Codeine Phosphate (Tylenol #3) 1 tab PO Q3H PRN PRN Reason: Mild Pain (1-3) Hydrocodone Bitart/Acetaminophen ([place] 7.5/325) 1 tab PO Q4H PRN PRN Reason: Moderate Pain (4-6) Last Admin: 01/10/18 08:40 Dose: 1 tab Al Hydroxide/Mg Hydroxide (Maalox) 30 ml PO Q4H PRN PRN Reason: Indigestion Aspirin (Ecotrin) 81 mg PO DAILY [facility] Last Admin: 01/10/18 08:41 Dose: 81 mg Aspirin (Aspirin Chewable) 81 mg PO DAILY [facility] Last Admin: 01/10/18 08:41 Dose: Not Given Atorvastatin Calcium (Lipitor) 10 mg PO HS [facility] Last Admin: 01/09/18 21:57 Dose: 10 mg Bisacodyl (Dulcolax) 10 mg MT Q12H PRN PRN Reason: Constipation Carvedilol (Coreg) 25 mg PO BID [facility] Last Admin: 01/10/18 08:41 Dose: 25 mg Clonidine (Catapres) 0.1 mg PO HS PRN PRN Reason: HTN Last Admin: 01/07/18 23:23 Dose: 0.1 mg Hydralazine HCl (Apresoline) 25 mg PO TID [facility] Last Admin: 01/10/18 15:13 Dose: 25 mg Hydralazine HCl (Apresoline) 10 mg SLOW IVP Q4H PRN PRN Reason: SBP > 180 and HR < 70 Cefazolin Sodium/Dextrose (Ancef 2 Gm/50 Ml) 50 mls @ 100 mls/hr IVPB Q8HR [facility] Last Admin: 10/28/18 15:14 Dose: 50 mls Isosorbide Mononitrate (Imdur Er) 30 mg PO DAILY [facility] Last Admin: 01/10/18 08:40 Dose: 30 mg Labetalol HCl (Normodyne) 20 mg SLOW IVP Q4H PRN PRN Reason: SBP > 180 and HR >/= 70 Lisinopril (Zestril) 40 mg PO HS [facility] Last Admin: 01/09/18 21:56 Dose: 40 mg Magnesium Hydroxide (Milk Of Magnesium) 30 ml PO Q12H PRN PRN Reason: Constipation Promethazine HCl (Phenergan) 12.5 mg IM Q4H PRN PRN Reason: Nausea/Vomiting Last Admin: 01/08/18 04:50 Dose: 12.5 mg Sodium Biphosphate/Sodium Phosphate (Fleet Enema) 133 ml MT ONE PRN PRN Reason: Constipation Stop: 01/14/18 13:27 Sodium Chloride (Flush - Normal Saline) 10 ml IVF PRN PRN PRN Reason: Saline Flush Tizanidine HCl (Zanaflex) 4 mg PO Q6H PRN PRN Reason: Muscle Spasm Last Admin: 01/10/18 12:19 Dose: 4 mg Tramadol HCl (Ultram) 50 mg PO Q6H PRN PRN Reason: Mild Pain (1-3) Last Admin: 01/10/18 12:19 Dose: 50 mg
[2018-01-10] MEDS: Lisinopril 20 MG TAB PO SCH (21:39)
[2018-01-10] MEDS: Atorvastatin Calcium 10 MG TAB PO SCH (21:40)
[2018-01-11] MEDS: CEFAZOLIN 2 GM/50 ML-DEXTROSE 50 ML IVPB SCH ×3 (00:47→17:53)
[2018-01-11] MEDS: HYDROcodone/Acetaminophen 7.5/325 mg Tablet PO PRN ×4 (04:14→19:19)
[2018-01-11] MEDS: tiZANidine HCl 4 MG TAB PO PRN ×3 (04:14→20:36)
[2018-01-11] MEDS: Carvedilol 25 MG TAB PO SCH ×2 (08:25→20:25)
[2018-01-11] MEDS: hydrALAZINE 25 MG TAB PO SCH ×3 (08:25→20:23)
[2018-01-11] MEDS: Aspirin 81 mg Enteric Coated Tablet PO SCH (08:26)
--- NOTE | 2018-01-11 09:52 | PRG ---
DATE OF SERVICE: 01/11/2018 Ms. Pedroza is now postoperative day #4, having undergone multilevel cervical and thoracic decompress ion and fusion. She looks much more awake and comfortable today than she was on Thursday. She has imp roved strength, especially into the bilateral hands, but into multiple myotomes in the bilateral uppe r extremities. She has been up walking with physical therapy. Her incision is uncovered and appears to be clean, dry, and intact and closed with sutures. I have asked the nurse to redress this when s he is sitting up. I would like her to continue to wear her collar when she is out of bed, but chepe chilel is progressing well. She is waiting on disposition including rehab placement, but is ready to go at any time. Please continue 81 mg aspirin given recent stent placement. Please call with any ques tions or changes in the patient's neurologic status.
[2018-01-11 12:21] LABS: CKMB 1.1 ng/mL (0-6.6); Troponin I Less than 0.010 ng/mL (< 0.028)
--- NOTE | 2018-01-11 15:07 | EKG ---
Test Reason : C/O CHEST PAIN Blood Pressure : / mmHG Vent. Rate : 078 BPM Atrial Rate : 078 BPM P-R Int : 182 ms QRS Dur : 104 ms QT Int : 408 ms P-R-T Axes : 062 -26 027 degrees QTc Int : 465 ms Normal sinus rhythm Non-specific intra-ventricular conduction delay Minimal voltage criteria for LVH, may be normal variant Abnormal ECG Confirmed by ILZ MORENO ([id number]) on 01/11/2018 3:07:04 PM Referred By: MIKEY Confirmed By:LIZ MORENO
[2018-01-11] MEDS: Lisinopril 20 MG TAB PO SCH (20:23)
[2018-01-11] MEDS: Atorvastatin Calcium 10 MG TAB PO SCH (20:25)
--- NOTE | 2018-01-11 23:21 | PDOC.PN ---
- Subjective Encounter Start Date: 01/11/18 Encounter Start Time: 11:00 Subjective: nsg notes rev, tatiana ovn, no new c/o, working with PT - Objective Vital Signs & Weight: Vital Signs (12 hours) Temp Pulse Resp BP BP Pulse Ox 01/11/18 20:23 90 170/95 H 01/11/18 19:52 99.7 F H 85 16 170/95 H 91 L 01/11/18 15:46 99.1 F 83 20 163/80 H 92 L 01/11/18 14:43 76 Weight Weight 295 lb 3.183 oz Most Recent Monitor Data Heart Rate from ECG 84 NIBP 159/92 NIBP BP-Mean 114 Respiration from ECG 15 SpO2 94 I&O: 01/10/18 01/11/18 01/12/18 06:59 06:59 06:59 Intake Total 8493 664 5441 Output Total 900 Balance 616 583 9903 Result Diagrams: 01/08/18 08:37 01/08/18 08:36 Dx/Plan - Plan Constitutional: NAD, seated on edge of bed HEENT: PERRLA, moist MMs Respiratory: no wheezing, no rales, no rhonchi Cardiovascular: RRR, no significant murmur, no rub pulses 2+ b/l UE Gastrointestinal: obese, soft, non-tender, positive bowel sounds Musculoskeletal: pulses present Psychiatric: A&O x 3 flat affect Dx/Plan (1) HTN (hypertension) Code(s): I10 - ESSENTIAL (PRIMARY) HYPERTENSION Status: Chronic stable continue home regimen and pain ctrl (2) Coronary artery disease Code(s): I25.10 - ATHSCL HEART DISEASE OF [place] CORONARY ARTERY W/O ANG PCTRS Status: Chronic stable cont asa (3) Dyslipidemia Code(s): E78.5 - HYPERLIPIDEMIA, UNSPECIFIED Status: Chronic \ stable (4) Obesity, morbid Code(s): E66.01 - MORBID (SEVERE) OBESITY DUE TO EXCESS CALORIES Status: Chronic stable cont ICS, pulmonary toilet will need o/p f/u for obesity (5) Status post cervical spinal fusion Status: Acute PT OT pain control as per neurosurg ok for transfer to med floor d/w pt @ bedside Review of Systems - Medications/Allergies Allergies/Adverse Reactions: Allergies Allergy/AdvReac Type Severity Reaction Status Date / Time No Known Drug Allergies Allergy Verified 12/31/17 09:22 Medications: Current Medications Acetaminophen (Tylenol) 650 mg PO Q4H PRN PRN Reason: Headache/Fever or Pain Last Admin: 01/10/18 12:19 Dose: 650 mg Acetaminophen/Codeine Phosphate (Tylenol #3) 1 tab PO Q3H PRN PRN Reason: Mild Pain (1-3) Hydrocodone Bitart/Acetaminophen ([place] 7.5/325) 1 tab PO Q4H PRN PRN Reason: Moderate Pain (4-6) Last Admin: 01/13/18 06:11 Dose: 1 tab Al Hydroxide/Mg Hydroxide (Maalox) 30 ml PO Q4H PRN PRN Reason: Indigestion Aspirin (Ecotrin) 81 mg PO DAILY [facility] Last Admin: 01/13/18 09:40 Dose: 81 mg Atorvastatin Calcium (Lipitor) 10 mg PO HS [facility] Last Admin: 01/12/18 21:45 Dose: 10 mg Bisacodyl (Dulcolax) 10 mg [place] Q12H PRN PRN Reason: Constipation Carvedilol (Coreg) 25 mg PO BID [facility] Last Admin: 01/13/18 09:40 Dose: 25 mg Clonidine (Catapres) 0.1 mg PO HS PRN PRN Reason: HTN Last Admin: 01/07/18 23:23 Dose: 0.1 mg Hydralazine HCl (Apresoline) 25 mg PO TID [facility] Last Admin: 01/13/18 09:40 Dose: 25 mg Hydralazine HCl (Apresoline) 10 mg SLOW IVP Q4H PRN PRN Reason: SBP > 180 and HR < 70 Isosorbide Mononitrate (Imdur Er) 30 mg PO DAILY [facility] Last Admin: 01/13/18 09:40 Dose: 30 mg Labetalol HCl (Normodyne) 20 mg SLOW IVP Q4H PRN PRN Reason: SBP > 180 and HR >/= 70 Lisinopril (Zestril) 40 mg PO HS [facility] Last Admin: 01/12/18 21:43 Dose: 40 mg Magnesium Hydroxide (Milk Of Magnesium) 30 ml PO Q12H PRN PRN Reason: Constipation Promethazine HCl (Phenergan) 12.5 mg IM Q4H PRN PRN Reason: Nausea/Vomiting Last Admin: 01/08/18 04:50 Dose: 12.5 mg Sodium Biphosphate/Sodium Phosphate (Fleet Enema) 133 ml [place] ONE PRN PRN Reason: Constipation Stop: 01/14/18 13:27 Sodium Chloride (Flush - Normal Saline) 10 ml IVF PRN PRN PRN Reason: Saline Flush Tizanidine HCl (Zanaflex) 4 mg PO Q6H PRN PRN Reason: Muscle Spasm Last Admin: 01/13/18 09:40 Dose: 4 mg Tramadol HCl (Ultram) 50 mg PO Q6H PRN PRN Reason: Mild Pain (1-3) Last Admin: 01/12/18 04:50 Dose: 50 mg
[2018-01-12] MEDS: HYDROcodone/Acetaminophen 7.5/325 mg Tablet PO PRN ×3 (00:49→18:58)
[2018-01-12] MEDS: tiZANidine HCl 4 MG TAB PO PRN ×3 (04:50→19:00)
[2018-01-12] MEDS: traMADol HCl 50 MG TAB PO PRN (04:50)
--- NOTE | 2018-01-12 08:31 | PRG ---
DATE OF SERVICE: 01/12/2018 Ms. Pedroza is postoperative day 5 from C2-T1 laminectomy and C2-T2 posterior instrumented stabilizat ion and arthrodesis. She moves her upper and lower extremities to command this morning and feels as if her upper and lower extremities are feeling better in regards to sensory and motor function. This is excellent news and I think the next step will be considering inpatient rehabilitation placement.
[2018-01-12] MEDS: Aspirin 81 mg Enteric Coated Tablet PO SCH (08:38)
[2018-01-12] MEDS: hydrALAZINE 25 MG TAB PO SCH ×3 (08:38→21:46)
[2018-01-12] MEDS: Carvedilol 25 MG TAB PO SCH ×2 (08:38→21:45)
[2018-01-12] MEDS: Lisinopril 20 MG TAB PO SCH (21:43)
[2018-01-12] MEDS: Atorvastatin Calcium 10 MG TAB PO SCH (21:45)
--- NOTE | 2018-01-12 23:37 | PDOC.PN ---
- Subjective Encounter Start Date: 01/12/18 Encounter Start Time: 11:00 Subjective: nsg notes rev, tatiana ovn, no c/o, lying in hospital bed, has not been -: having any issues with working with PT - Objective Vital Signs & Weight: Vital Signs (12 hours) Temp Pulse Resp BP BP Pulse Ox 01/12/18 23:09 99 F 87 16 141/82 H 94 L 01/12/18 21:46 68 165/89 H 01/12/18 21:43 165/89 H 01/12/18 19:36 99.4 F 83 16 152/85 H 94 L 01/12/18 15:41 99.1 F 77 15 130/75 94 L 01/12/18 14:24 80 153/77 H Weight Weight 295 lb 3.183 oz Most Recent Monitor Data Heart Rate from ECG 84 NIBP 159/92 NIBP BP-Mean 114 Respiration from ECG 15 SpO2 94 I&O: 01/11/18 01/12/18 01/13/18 06:59 06:59 06:59 Intake Total 580 1000 1370 Balance 580 1000 1370 Result Diagrams: 01/08/18 08:37 01/08/18 08:36 Dx/Plan - Plan Constitutional: NAD, lying in the hospital bed HEENT: PERRLA, moist MMs Respiratory: no wheezing, no rales, no rhonchi Cardiovascular: RRR, no significant murmur, no rub pulses 2+ b/l UE Gastrointestinal: obese, soft, non-tender, positive bowel sounds Musculoskeletal: pulses present Psychiatric: A&O x 3 flat affect Dx/Plan (1) HTN (hypertension) Code(s): I10 - ESSENTIAL (PRIMARY) HYPERTENSION Status: Chronic stable continue home regimen and pain ctrl (2) Coronary artery disease Code(s): I25.10 - ATHSCL HEART DISEASE OF [place] CORONARY ARTERY W/O ANG PCTRS Status: Chronic stable cont asa (3) Dyslipidemia Code(s): E78.5 - HYPERLIPIDEMIA, UNSPECIFIED Status: Chronic \ stable (4) Obesity, morbid Code(s): E66.01 - MORBID (SEVERE) OBESITY DUE TO EXCESS CALORIES Status: Chronic stable cont ICS, pulmonary toilet will need o/p f/u for obesity (5) Status post cervical spinal fusion Status: Acute PT OT pain control as per neurosurg stable for d/c Review of Systems - Medications/Allergies Allergies/Adverse Reactions: Allergies Allergy/AdvReac Type Severity Reaction Status Date / Time No Known Drug Allergies Allergy Verified 12/31/17 09:22 Medications: Current Medications Acetaminophen (Tylenol) 650 mg PO Q4H PRN PRN Reason: Headache/Fever or Pain Last Admin: 01/10/18 12:19 Dose: 650 mg Acetaminophen/Codeine Phosphate (Tylenol #3) 1 tab PO Q3H PRN PRN Reason: Mild Pain (1-3) Hydrocodone Bitart/Acetaminophen ([place] 7.5/325) 1 tab PO Q4H PRN PRN Reason: Moderate Pain (4-6) Last Admin: 01/12/18 18:58 Dose: 1 tab Al Hydroxide/Mg Hydroxide (Maalox) 30 ml PO Q4H PRN PRN Reason: Indigestion Aspirin (Ecotrin) 81 mg PO DAILY [facility] Last Admin: 01/12/18 08:38 Dose: 81 mg Atorvastatin Calcium (Lipitor) 10 mg PO HS [facility] Last Admin: 01/12/18 21:45 Dose: 10 mg Bisacodyl (Dulcolax) 10 mg [place] Q12H PRN PRN Reason: Constipation Carvedilol (Coreg) 25 mg PO BID [facility] Last Admin: 01/12/18 21:45 Dose: 25 mg Clonidine (Catapres) 0.1 mg PO HS PRN PRN Reason: HTN Last Admin: 01/07/18 23:23 Dose: 0.1 mg Hydralazine HCl (Apresoline) 25 mg PO TID [facility] Last Admin: 01/12/18 21:46 Dose: 25 mg Hydralazine HCl (Apresoline) 10 mg SLOW IVP Q4H PRN PRN Reason: SBP > 180 and HR < 70 Isosorbide Mononitrate (Imdur Er) 30 mg PO DAILY [facility] Last Admin: 01/12/18 08:38 Dose: 30 mg Labetalol HCl (Normodyne) 20 mg SLOW IVP Q4H PRN PRN Reason: SBP > 180 and HR >/= 70 Lisinopril (Zestril) 40 mg PO HS [facility] Last Admin: 01/12/18 21:43 Dose: 40 mg Magnesium Hydroxide (Milk Of Magnesium) 30 ml PO Q12H PRN PRN Reason: Constipation Promethazine HCl (Phenergan) 12.5 mg IM Q4H PRN PRN Reason: Nausea/Vomiting Last Admin: 01/08/18 04:50 Dose: 12.5 mg Sodium Biphosphate/Sodium Phosphate (Fleet Enema) 133 ml [place] ONE PRN PRN Reason: Constipation Stop: 01/14/18 13:27 Sodium Chloride (Flush - Normal Saline) 10 ml IVF PRN PRN PRN Reason: Saline Flush Tizanidine HCl (Zanaflex) 4 mg PO Q6H PRN PRN Reason: Muscle Spasm Last Admin: 01/12/18 19:00 Dose: 4 mg Tramadol HCl (Ultram) 50 mg PO Q6H PRN PRN Reason: Mild Pain (1-3) Last Admin: 01/12/18 04:50 Dose: 50 mg
[2018-01-13] MEDS: HYDROcodone/Acetaminophen 7.5/325 mg Tablet PO PRN ×3 (00:25→14:01)
[2018-01-13] MEDS: tiZANidine HCl 4 MG TAB PO PRN ×2 (00:25→09:40)
--- NOTE | 2018-01-13 09:34 | PRG ---
DATE OF SERVICE: 01/13/2018 Ms. Pedroza is postoperative day 6 from multi-level cervical laminectomy stabilization for OPLL relat ed myelopathy. She is doing well and would like to go home. She feels continued improvement in her upper and lower extremities and feels as if she is ambulating better. Frankly, I am fine with her be ing discharged as she has help at home. I have asked her to remain on just a baby aspirin at this ti me.
[2018-01-13] MEDS: hydrALAZINE 25 MG TAB PO SCH ×2 (09:40→14:02)
[2018-01-13] MEDS: Aspirin 81 mg Enteric Coated Tablet PO SCH (09:40)
[2018-01-13] MEDS: Carvedilol 25 MG TAB PO SCH (09:40)
--- NOTE | 2018-01-13 10:48 | PDOC.PN ---
- Subjective Encounter Start Date: 01/13/18 Encounter Start Time: 10:00 Subjective: nsg notes rev, tatiana ovn, no new c/o, states she is going home today - Objective Vital Signs & Weight: Vital Signs (12 hours) Temp Pulse Resp BP BP Pulse Ox 01/13/18 09:40 66 146/87 H 01/13/18 08:00 98.5 F 77 16 146/87 H 95 01/13/18 04:00 99 F 66 16 138/83 01/12/18 23:09 99 F 87 16 141/82 H 94 L Weight Weight 295 lb 3.183 oz Most Recent Monitor Data Heart Rate from ECG 84 NIBP 159/92 NIBP BP-Mean 114 Respiration from ECG 15 SpO2 94 I&O: 01/12/18 01/13/18 01/14/18 06:59 06:59 06:59 Intake Total 1000 1370 240 Balance 1000 1370 240 Result Diagrams: 01/08/18 08:37 01/08/18 08:36 Dx/Plan - Plan Constitutional: NAD, seated on edge of bed HEENT: PERRLA, moist MMs Respiratory: no wheezing, no rales, no rhonchi Cardiovascular: RRR, no significant murmur, no rub pulses 2+ b/l UE Gastrointestinal: obese, soft, non-tender, positive bowel sounds Musculoskeletal: pulses present Psychiatric: A&O x 3 flat affect Dx/Plan (1) HTN (hypertension) Code(s): I10 - ESSENTIAL (PRIMARY) HYPERTENSION Status: Chronic stable continue home regimen and pain ctrl (2) Coronary artery disease Code(s): I25.10 - ATHSCL HEART DISEASE OF [place] CORONARY ARTERY W/O ANG PCTRS Status: Chronic stable cont asa (3) Dyslipidemia Code(s): E78.5 - HYPERLIPIDEMIA, UNSPECIFIED Status: Chronic \ stable (4) Obesity, morbid Code(s): E66.01 - MORBID (SEVERE) OBESITY DUE TO EXCESS CALORIES Status: Chronic stable cont ICS, pulmonary toilet will need o/p f/u for obesity (5) Status post cervical spinal fusion Status: Acute PT OT pain control as per neurosurg plan for d/c today will sign off thank you for asking for consultation Review of Systems - Medications/Allergies Allergies/Adverse Reactions: Allergies Allergy/AdvReac Type Severity Reaction Status Date / Time No Known Drug Allergies Allergy Verified 12/31/17 09:22 Medications: Current Medications Acetaminophen (Tylenol) 650 mg PO Q4H PRN PRN Reason: Headache/Fever or Pain Last Admin: 01/10/18 12:19 Dose: 650 mg Acetaminophen/Codeine Phosphate (Tylenol #3) 1 tab PO Q3H PRN PRN Reason: Mild Pain (1-3) Hydrocodone Bitart/Acetaminophen ([place] 7.5/325) 1 tab PO Q4H PRN PRN Reason: Moderate Pain (4-6) Last Admin: 01/13/18 06:11 Dose: 1 tab Al Hydroxide/Mg Hydroxide (Maalox) 30 ml PO Q4H PRN PRN Reason: Indigestion Aspirin (Ecotrin) 81 mg PO DAILY [facility] Last Admin: 01/13/18 09:40 Dose: 81 mg Atorvastatin Calcium (Lipitor) 10 mg PO HS [facility] Last Admin: 01/12/18 21:45 Dose: 10 mg Bisacodyl (Dulcolax) 10 mg [place] Q12H PRN PRN Reason: Constipation Carvedilol (Coreg) 25 mg PO BID [facility] Last Admin: 01/13/18 09:40 Dose: 25 mg Clonidine (Catapres) 0.1 mg PO HS PRN PRN Reason: HTN Last Admin: 01/07/18 23:23 Dose: 0.1 mg Hydralazine HCl (Apresoline) 25 mg PO TID [facility] Last Admin: 01/13/18 09:40 Dose: 25 mg Hydralazine HCl (Apresoline) 10 mg SLOW IVP Q4H PRN PRN Reason: SBP > 180 and HR < 70 Isosorbide Mononitrate (Imdur Er) 30 mg PO DAILY [facility] Last Admin: 01/13/18 09:40 Dose: 30 mg Labetalol HCl (Normodyne) 20 mg SLOW IVP Q4H PRN PRN Reason: SBP > 180 and HR >/= 70 Lisinopril (Zestril) 40 mg PO HS [facility] Last Admin: 01/12/18 21:43 Dose: 40 mg Magnesium Hydroxide (Milk Of Magnesium) 30 ml PO Q12H PRN PRN Reason: Constipation Promethazine HCl (Phenergan) 12.5 mg IM Q4H PRN PRN Reason: Nausea/Vomiting Last Admin: 01/08/18 04:50 Dose: 12.5 mg Sodium Biphosphate/Sodium Phosphate (Fleet Enema) 133 ml [place] ONE PRN PRN Reason: Constipation Stop: 01/14/18 13:27 Sodium Chloride (Flush - Normal Saline) 10 ml IVF PRN PRN PRN Reason: Saline Flush Tizanidine HCl (Zanaflex) 4 mg PO Q6H PRN PRN Reason: Muscle Spasm Last Admin: 01/13/18 09:40 Dose: 4 mg Tramadol HCl (Ultram) 50 mg PO Q6H PRN PRN Reason: Mild Pain (1-3) Last Admin: 01/12/18 04:50 Dose: 50 mg
[2018-01-13 12:40] VITALS: BP 121/63; TEMP 99.4
--- NOTE | 2018-01-19 11:44 | DIS-2 ---
DATE OF ADMISSION: 01/07/2018 DATE OF DISCHARGE: 01/13/2018 DISCHARGE DIAGNOSES: 1. 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 2. Neck pain. 3. Coronary artery disease. 4. Type 2 diabetes. 5. Hypertension. 6. Hyperlipidemia. 7. Morbid obesity. HOSPITAL COURSE: Ms. Pedroza was admitted to undergo multilevel posterior cervical and thoracic deco mpression and fusion. The patient had recent cardiac stenting and had an episode of chest pain posto peratively and was placed back on 81 mg aspirin for this. She required several overnight stays in [facility] as her surgery was without complication, but needed some help with pain control. At the t [place] of discharge, she was discharged home with home health and doing well. She had significant impro vement in all extremities generalized weakness and was up walking with a walker. The patient was dis charged with appropriate patient education and followup appointments. She certainly understood to ca ll the office with questions or concerns prior to her next followup appointments. At the time of dis charge, the patient was doing well with some complaints of posterior neck pain, but otherwise had sig nificant improvement in all 4 extremities strength.
== END 2018-01-13 14:55 | disposition home or self-care (01) | DRG 472 ==
LOC: SURG A 01-07 05:54 → CCU 01-07 14:44 → SURG A 01-09 13:27
PROVIDERS: ADMIT Surgery; ATTEND Surgery
PROC: 0RG40AJ Fusion of Cervicothoracic Vertebral Joint with Interbody Fusion Device, Posterior Approach, Anterior Column, Open Approach (ICD-10-PCS; principal; 2018-01-07)
DX: M48.8X2 Other specified spondylopathies, cervical region (principal); G95.29 Other cord compression; M47.12 Other spondylosis with myelopathy, cervical region; Z68.43 Body mass index [BMI] 50.0-59.9, adult; I10 Essential (primary) hypertension; R73.03 Prediabetes; E66.01 Morbid (severe) obesity due to excess calories; I34.0 Nonrheumatic mitral (valve) insufficiency; Z79.82 Long term (current) use of aspirin; Z95.5 Presence of coronary angioplasty implant and graft; I25.10 Atherosclerotic heart disease of native coronary artery without angina pectoris; E78.2 Mixed hyperlipidemia
CPT/HCPCS: 36415; 76001; 80048; 82553; 84484; 85025; 93005; 93010; 93970; C1713; C1768; G8978-GP-CM; G8979-GP-CI; G8987-GO-CL; G8988-GO-CJ; J0360; J1885; J2001; J2270; J2405; J2550; J2704; J3010; J3370; J3490

== ENCOUNTER 2018-01-16 10:11 | Observation (INO) | payer OTHER ==
[2018-01-16 11:08] LABS: #Eosinphils 0.2 thou/uL (0.0-0.7); #Lymphocytes 1.2 thou/uL (1.20-3.40); #Monocytes 0.5 thou/uL (0.11-0.59); #Neutrophils 3.6 thou/uL (1.40-6.50); %Basophils 0.3 % (0.0-1.0); %Eosinophils 2.8 % (0.0-10.0); %Lymphocytes 21.4 % (21.0-51.0); %Monocytes 9.8 % (0.0-10.0); %Neutrophils 65.8 % (42.0-75.0); Hemoglobin 10.9 g/dL (12.0-16.0); Mean Corpuscular HGB CONC 30.8 g/dL (32.0-36.0); Mean Corpuscular Hemoglobin 27.7 pg (27.0-31.0); Mean Platelet Volume 7.4 fL (7.4-10.4); Platelet Count 286 thou/uL (130-400); Red Blood Cell (RBC) Count 3.94 mill/uL (4.20-5.40); White Blood Cell (WBC) Count 5.5 thou/uL (4.8-10.8)
[2018-01-16 11:33] LABS: ALT (SGPT) 37 U/L (8-55); AST (SGOT) 22 U/L (5-34); Albumin 3.6 g/dL (3.5-5.0); Alkaline Phosphatase 63 U/L (40-150); Anion Gap 12 mmol/L (10-20); BUN (Urea Nitrogen) 9 mg/dL (9.8-20.1); Bilirubin, Total 0.3 mg/dL (0.2-1.2); Calc. Creatinine Clearance 0 mL/min (70-130); Calcium 8.4 mg/dL (7.8-10.44); Carbon Dioxide 28 mmol/L (22-29); Chloride 101 mmol/L (98-107); Estimated GFR-MDRD 89; Globulin 3.5 g/dL (2.4-3.5); Glucose 118 mg/dL (70-105); Potassium 3.9 mmol/L (3.5-5.1); Protein, Total 7.1 g/dL (6.0-8.3); Sodium 137 mmol/L (136-145)
[2018-01-16 12:03] LABS: CKMB 1.2 ng/mL (0-6.6); Troponin I Less than 0.010 ng/mL (< 0.028)
--- NOTE | 2018-01-16 13:20 | CT ---
CT ANGIO OF HEAD AND NECK PERFORMED WITH AND WITHOUT INTRAVENOUS CONTRAST ENHANCEMENT WITH 3D RECONST RUCTIONS: HISTORY: Syncope episodes while lying on right side. FINDINGS: The ventricular and cisternal system is within normal limits. No signs of intracerebral hemorrhage o r extraaxial fluid collections. CT ANGIO OF NECK PERFORMED WITH CONTRAST ENHANCEMENT: The exam was technically limited due to patient's body habitus. The lung apices are clear. Thyroid gland is normal in size. No significant jugular chain adenopathy is seen. The parotid and submandibular glands appear unremarkable. The angiographic portion of the study shows a bovine-type origin of the left common carotid artery fr om the right innominate. The proximal vessels are very tortuous, but I do not see any signs of any n arrowing. On the right side, the right common internal and external carotid arteries are patent. There is no e vidence of any significant stenosis by NASCET criteria. The left side also shows no areas of signifi cant narrowing. The vertebral arteries appear codominant. CT ANGIO OF HEAD PERFORMED WITH INTRAVENOUS CONTRAST ENHANCEMENT WITH 3D RECONSTRUCTIONS: The cavernous portions of both internal carotid arteries showed normal flow. Anterior and middle cer ebral arteries and their branches appear unremarkable. The basilar artery is normal in appearance. Posterior cerebral arteries appear unremarkable. IMPRESSION: Unremarkable CT angio of the head and neck. POS: [facility]
[2018-01-16] MEDS ORDERED: Iopamidol 370 76% 100 ML VIAL ONE (13:58)
[2018-01-16] MEDS ORDERED: Acetaminophen 650 MG Suppository PR PRN (15:20)
[2018-01-16] MEDS ORDERED: Enoxaparin Sodium 40 MG/0.4 ML SYRINGE SC SCH (15:20)
[2018-01-16] MEDS ORDERED: HYDROcodone/Acetaminophen 5/325 mg Tablet PO PRN (15:20)
[2018-01-16] MEDS ORDERED: Acetaminophen 325 MG TAB PO PRN (15:20)
[2018-01-16] MEDS ORDERED: Sodium Chloride 0.9% 1,000 ML IV SCH (15:20)
[2018-01-16] MEDS ORDERED: Ondansetron ODT 4 MG TAB PO PRN (15:20)
[2018-01-16] MEDS ORDERED: Ondansetron PF 4 MG/2 ML Vial IVP PRN (15:20)
[2018-01-16] MEDS ORDERED: Furosemide 40 MG TAB PO PRN (15:20)
[2018-01-16] MEDS ORDERED: cloNIDine 0.1 MG TAB PO PRN (15:27)
[2018-01-16] MEDS: hydrALAZINE 25 MG TAB PO SCH ×2 (15:54→20:53)
[2018-01-16] MEDS: HYDROcodone/Acetaminophen 5/325 mg Tablet PO PRN ×2 (15:54→21:10)
[2018-01-16] MEDS: tiZANidine HCl 4 MG TAB PO PRN (15:54)
[2018-01-16 15:59] VITALS: BMI 51.8
[2018-01-16 16:28] LABS: CKMB 1.2 ng/mL (0-6.6); Troponin I Less than 0.010 ng/mL (< 0.028)
[2018-01-16] MEDS ORDERED: Acetaminophen 500 MG TAB PO PRN (16:39)
[2018-01-16] MEDS ORDERED: Carvedilol 25 MG TAB PO SCH (16:45)
[2018-01-16] MEDS ORDERED: HYDROcodone/Acetaminophen 5/325 mg Tablet PO SCH (18:00)
[2018-01-16] MEDS: Carvedilol 25 MG TAB PO SCH (20:53)
[2018-01-16] MEDS: Famotidine 20 MG TAB PO SCH (20:53)
[2018-01-16] MEDS ORDERED: TICAGRELOR 90 MG TABLET PO SCH (21:00)
[2018-01-16] MEDS ORDERED: Acetaminophen 500 MG TAB PO SCH (21:00)
[2018-01-16] MEDS ORDERED: Atorvastatin Calcium 10 MG TAB PO SCH (21:00)
[2018-01-16] MEDS ORDERED: Lisinopril 20 MG TAB PO SCH (21:15)
[2018-01-17 00:03] LABS: CKMB 1.4 ng/mL (0-6.6); Troponin I Less than 0.010 ng/mL (< 0.028)
[2018-01-17] MEDS: tiZANidine HCl 4 MG TAB PO PRN ×2 (01:03→09:22)
[2018-01-17 05:13] LABS: #Eosinphils 0.1 thou/uL (0.0-0.7); #Lymphocytes 1.2 thou/uL (1.20-3.40); #Monocytes 0.6 thou/uL (0.11-0.59); #Neutrophils 3.4 thou/uL (1.40-6.50); %Basophils 0.4 % (0.0-1.0); %Eosinophils 2.3 % (0.0-10.0); %Monocytes 11.2 % (0.0-10.0); %Neutrophils 63.1 % (42.0-75.0); Hemoglobin 9.9 g/dL (12.0-16.0); Mean Corpuscular Hemoglobin 28.8 pg (27.0-31.0); Mean Corpuscular Volume 89.9 fL (78.0-98.0); Mean Platelet Volume 7.8 fL (7.4-10.4); Platelet Count 275 thou/uL (130-400); RBC Distribution Width 11.9 % (11.5-14.5); Red Blood Cell (RBC) Count 3.44 mill/uL (4.20-5.40); White Blood Cell (WBC) Count 5.4 thou/uL (4.8-10.8)
[2018-01-17 05:24] LABS: Anion Gap 10 mmol/L (10-20); BUN (Urea Nitrogen) 9 mg/dL (9.8-20.1); Calc. Creatinine Clearance 182 mL/min (70-130); Calcium 8.2 mg/dL (7.8-10.44); Carbon Dioxide 28 mmol/L (22-29); Chloride 102 mmol/L (98-107); Estimated GFR-MDRD Greater than 90; Glucose 110 mg/dL (70-105); Magnesium 1.9 mg/dL (1.6-2.6); Potassium 3.2 mmol/L (3.5-5.1); Sodium 137 mmol/L (136-145)
[2018-01-17 06:37] LABS: CKMB 1.6 ng/mL (0-6.6); Troponin I Less than 0.010 ng/mL (< 0.028)
[2018-01-17] MEDS: Carvedilol 25 MG TAB PO SCH (07:38)
[2018-01-17] MEDS: Famotidine 20 MG TAB PO SCH (07:38)
[2018-01-17] MEDS: hydrALAZINE 25 MG TAB PO SCH (07:38)
[2018-01-17] MEDS ORDERED: Enoxaparin Sodium 40 MG/0.4 ML SYRINGE SC SCH (09:00)
[2018-01-17] MEDS ORDERED: Aspirin 81 mg Enteric Coated Tablet PO SCH (09:00)
[2018-01-17] MEDS ORDERED: Polyethylene Glycol 3350 17 GM Packet PO SCH (09:00)
[2018-01-17] MEDS ORDERED: Potassium Chloride 20 MEQ TAB PO SCH (09:00)
[2018-01-17] MEDS ORDERED: Meclizine HCl 25 MG TAB PO PRN (09:07)
[2018-01-17] MEDS: Potassium Chloride 20 MEQ TAB PO SCH ×2 (09:22→12:25)
[2018-01-17 11:43] VITALS: BP 159/84; TEMP 98.7
--- NOTE | 2018-01-17 11:56 | SS ---
DATE OF ADMISSION: 01/16/2018 DATE OF DISCHARGE: 01/17/2018 PRIMARY CARE PHYSICIAN: Kyree Narayanan M.D. DISCHARGE DIAGNOSES: 1. Dizziness, likely benign positional vertigo. 2. Diabetes mellitus type 2. 3. Chronic systolic congestive heart failure without acute exacerbation. 4. Severe mitral regurgitation. 5. Severe obesity. 6. Hypertension. 7. Hyperlipidemia. 8. Renal stones. CONSULTATIONS: None. PROCEDURES: None. HISTORY AND PHYSICAL: Ms. Pedroza is a 52-year-old female who presented to the Emergency Department for evaluation of dizziness. She had a recent neck surgery about 2-3 weeks ago. She can sleep normally on her left, but when she turned to her right, she started having a sensation that the room was spinning around her. It made h er very nauseated, but she did not throw up. She felt somewhat short of breath and felt like her hea rt was racing, but regular. Denied any chest pain. She came to the Emergency Department for further evaluation and workup. There, labs and vital signs were fairly normal except for elevated blood pressure. We were subsequen tly called for admission. She does not give any further history. PAST MEDICAL HISTORY: 1. Diabetes mellitus type 2, non-insulin dependent. 2. Ischemic cardiomyopathy with EF of 40%-45%. 3. Chronic systolic congestive heart failure. 4. Mitral regurgitation. 5. Severe obesity. 6. Hypertension, essential. 7. Renal stones. 8. Hyperlipidemia. PAST SURGICAL HISTORY: Includes, 1. x3. 2. Left knee surgery. 3. Renal stone removal. HOME MEDICATIONS: 1. Lipitor 10 mg p.o. at bedtime. 2. Aspirin 81 mg daily. 3. Coreg 25 mg p.o. b.i.d. 4. Lasix 40 mg p.o. p.r.n. 5. Hydralazine 50 mg p.o. t.i.d. 6. Isosorbide mononitrate 30 mg p.o. q.a.m. 7. Lisinopril 40 mg p.o. q.a.m. 8. Potassium chloride 20 mEq daily. 9. Clonidine 0.1 mg p.o. q.p.m. 10. Zanaflex 4 mg p.o. q.8 hours, new medication. 11. Tramadol 50 mg p.o. q.4-6 hours p.r.n. pain, new prescription recently. ALLERGIES: NKDA. FAMILY HISTORY: Significant for hypertension, coronary artery disease and diabetes. SOCIAL HISTORY: Lives at home. Lives on disability. Drinks alcohol socially on the weekends. No I V drug use or tobacco history. REVIEW OF SYSTEMS: All systems reviewed and negative except as stated as per HPI. PHYSICAL EXAMINATION: VITAL SIGNS: Temperature current is 97.9, pulse 68, blood pressure 193/93, respiratory rate 20, satt ing 97% on room air. GENERAL: She is awake. She is alert. She is oriented x3. She is a well-developed, well-nourished, severely obese female who appears to be in no acute distress. HEENT: Normocephalic, atraumatic. Pupils equal, round and reactive to light bilaterally. Mucous me mbranes moist. There are no visible lesions. No thrush. NECK: Supple. She had no lymphadenopathy. I cannot appreciate JVD given her neck size. RESPIRATORY: Lungs are clear to auscultation bilaterally. She has some faint bibasilar crackles elio t seem to clear with deep inspiration. She has no prolonged expiratory phase. No rales or wheezes. CARDIOVASCULAR: She has a normal S1 and S2. No S3 or S4. She is normocardic and regular. I cannot appreciate murmurs. ABDOMEN: Severely obese. I cannot palpate internal organs. She has no tenderness to palpation. No rebound, rigidity or guarding. She has good bowel sounds in all 4 quadrants. EXTREMITIES: With no cyanosis or clubbing with 1+ lower extremity edema to the mid tibia level. SKIN: Warm, moist and well perfused. There are no rashes or lesions. MUSCULOSKELETAL: Normal to inspection. Large joints appear normal. There is no evidence of inflamm ation or palpable effusions. Neck incision is healed well. NEUROLOGIC: Cranial nerves II-XII are grossly intact. She has no focal deficits. Normal speech and 5/5 strength in all four extremities. She has no nystagmus present. I was not able to perform Nigel- Hallpike maneuver as she was unwilling to sit up. LABORATORY EVALUATION: Sodium 137, potassium 3.9, chloride 101, bicarbonate 28, BUN 9, creatinine 0. 81, glucose 118 and calcium 8.4. Liver function completely within normal limits. CK-MB was 1.2 and troponin I was undetectable, less than 0.010. Her CBC showed a white count of 5.5 with hemoglobin of 10.9, hematocrit of 35.4 and platelet count was 286,000 with normal differential. RADIOGRAPHIC STUDIES: She had a CT angio of the chest and head that was unremarkable. ASSESSMENT AND PLAN: 1. Dizziness: The patient sounds to have benign positional vertigo. We will put her on meclizine p .r.n. We will continue home medications and get her blood pressure down. She missed most of her mor car medications today, so we will get them restarted and see how her blood pressure does. 2. Hypertension. As above. 3. Diabetes mellitus type 2, she is eating well. She is not nauseated. We will place her on diabet ic diet with sliding scale insulin. 4. Ischemic cardiomyopathy and chronic systolic congestive heart failure. There is no acute exacerb ation. Continue home medications. 5. History of mitral regurgitation. I cannot even hear the murmur due to body habitus. 6. History of renal stones. 7. Hyperlipidemia, on Lipitor. We will continue. We will watch her overnight in observation. We will have meclizine available as needed. We will kenneth ch her on the gambling monitor as well. We will have her roll to both sides and see how she does an d reevaluate in the morning. HOSPITAL COURSE: The patient was seen and examined by me on admission with plan as above. Overnight , she did well. She had no further episodes, able to sleep on either side and had no further vertigo . She did not take any meclizine. It appears today her vital signs are stable. Her blood pressure is much better controlled and she was feeling better and was stable for discharge with outpatient [facility]. PHYSICAL EXAMINATION: The patient was seen and examined on the day of discharge. Discharge plan and disposition discussed with the patient [id number] at the bedside. DISCHARGE MEDICATIONS: Home medicines resumed. New medication, meclizine 25 mg p.o. q.8 hours p.r.n. dizziness or vertigo. FOLLOWUP APPOINTMENTS: 1. Primary care physician, Dr. Narayanan within a week. 2. Neurosurgery with Dr. Hung as already scheduled. DISCHARGE ACTIVITY: As tolerated. DISCHARGE DIET: Heart healthy diabetic diet recommended. DISCHARGE CONDITION: Stable. DISPOSITION: Will be discharged home via private vehicle.
[2018-01-17] MEDS ORDERED: Lisinopril 20 MG TAB PO SCH (21:00)
== END 2018-01-17 12:40 | disposition home or self-care (01) ==
LOC: ERS 10:11 → 2SW 13:25
PROVIDERS: ADMIT Internal Medicine Infectious Disease; ATTEND Internal Medicine Infectious Disease
DX: R42 Dizziness and giddiness (principal); I11.0 Hypertensive heart disease with heart failure; I50.22 Chronic systolic (congestive) heart failure; I34.0 Nonrheumatic mitral (valve) insufficiency; I25.5 Ischemic cardiomyopathy; E78.5 Hyperlipidemia, unspecified; E66.01 Morbid (severe) obesity due to excess calories; Z68.43 Body mass index [BMI] 50.0-59.9, adult; Z79.82 Long term (current) use of aspirin; Z79.899 Other long term (current) drug therapy; Z98.890 Other specified postprocedural states
CPT/HCPCS: 36415; 70496; 70498; 80048; 80053; 82553; 83735; 84484; 85025; 93005; 96372; G0378; J1650

== ENCOUNTER 2018-03-03 13:17 | Outpatient (CLI) | payer OTHER ==
--- NOTE | 2018-03-03 15:15 | RAD ---
CERVICAL SPINE FOUR VIEWS: History: Cervical radiculopathy. Post op follow up. Cervical surgery 01-07-18. Comparison: 07-17-17 FINDINGS: Pedicle screws and rods are now seen at C2, C3, C4, C5, C6, T1 and T2. Posterior alignment appears no rmally maintained. Prominent hypertrophic degenerative changes are again noted with large anterior os teophytes. IMPRESSION: Post-operative and degenerative changes of the cervical spine apparent. POS: [facility]
== END 2018-03-03 13:18 | disposition home or self-care (01) ==
LOC: TBSIIMAG 13:17
PROVIDERS: ATTEND Surgery
DX: M47.22 Other spondylosis with radiculopathy, cervical region (principal); M47.12 Other spondylosis with myelopathy, cervical region; M48.02 Spinal stenosis, cervical region; Z98.890 Other specified postprocedural states
CPT/HCPCS: 72040

== ENCOUNTER 2018-10-12 14:03 | Outpatient (CLI) | payer OTHER ==
--- NOTE | 2018-10-12 15:35 | RAD ---
CERVICAL SPINE FOUR VIEWS: HISTORY: Cervical radiculopathy. Follow-up evaluation of neck surgery. COMPARISON: 03/03/2018 FINDINGS: Again noted is posterior cervical fusion of the cervicothoracic spine with bipedicular screws and pos terior rods again transfixing the C2 through T2 vertebral bodies with laminectomy defects at these le vels. Alignment of the cervical spine is similar to the prior study, and no hardware complication is visualized. No fracture is appreciated. The prevertebral soft tissues are within normal limits. T here are osteophytes seen anteriorly, involving the cervical as well as the thoracic spine. IMPRESSION: Stable postoperative and degenerative changes of the cervical spine. POS: [facility]
--- NOTE | 2018-10-12 15:37 | RAD ---
THREE VIEWS THORACIC SPINE: 10/12/18 HISTORY: Thoracic pain. Prior posterior fusion cervicothoracic junction. COMPARISON: Cervical spine on 03/03/18. FINDINGS: There are postsurgical changes related to fusion of the cervicothoracic junction. Bipedicular screws are seen in the T1 and T2 vertebral bodies. Multilevel osteophytes are seen with calcification anterior longitudinal ligament with associated griselda dging osteophytes again present. The vertebral body heights are within normal limits. No fracture or subluxation is visualized. IMPRESSION: Multilevel degenerative changes of the thoracic spine with evidence of fusion of the cervicothoracic spine. POS: [facility]
== END 2018-10-12 14:04 | disposition home or self-care (01) ==
LOC: TBSIIMAG 14:03
PROVIDERS: ATTEND Surgery
DX: M54.6 Pain in thoracic spine (principal); M47.22 Other spondylosis with radiculopathy, cervical region; M47.814 Spondylosis without myelopathy or radiculopathy, thoracic region; Z98.1 Arthrodesis status
CPT/HCPCS: 72050; 72072

== ENCOUNTER 2018-10-19 10:40 | Outpatient (CLI) | payer OTHER ==
--- NOTE | 2018-10-19 11:27 | RAD ---
LUMBAR SPINE 2 VIEWS: HISTORY: Spondylosis of the lumbar joint. Low back pain FINDINGS: Multilevel degenerative changes are present. No acute fracture, subluxation or bony destruc tion is identified. IMPRESSION: Lumbar spondylosis
== END 2018-10-19 10:41 | disposition home or self-care (01) ==
LOC: RAD 10:40
PROVIDERS: ATTEND Internal Medicine
DX: M47.816 Spondylosis without myelopathy or radiculopathy, lumbar region (principal)
CPT/HCPCS: 72100

== ENCOUNTER 2019-04-05 09:37 | Outpatient (CLI) | payer OTHER ==
--- NOTE | 2019-04-05 10:37 | RAD ---
LUMBAR SPINE 4 VIEWS: HISTORY: Lumbar spine pain. FINDINGS: Exam includes standing flexion and extension lateral views. Multilevel disk-osteophytosis. No evidence for malalignment. No abnormal translation between flexio n and extension. No fracture or dislocation. IMPRESSION: Lumbar spondylosis. POS: [facility]
--- NOTE | 2019-04-05 10:38 | RAD ---
XR Knee Rt 4 View STANDARD: 04/05/2019 12:00 AM CLINICAL INDICATION: Right knee pain COMPARISON: None. FINDINGS: Bones: No acute fracture is demonstrated. There is a bipartite patella. Joints: There are prominent marginal osteophytes affecting all major compartments of the right knee w ith moderate medial femoral tibial joint compartmental narrowing and mild varus malalignment.. Soft Tissue: No acute abnormality.. IMPRESSION: Severe osteoarthrosis of the right knee.
--- NOTE | 2019-04-05 10:40 | RAD ---
EXAM: 4 views of the left knee HISTORY: Knee pain COMPARISON: None FINDINGS: No knee effusion is seen. There is no evidence of acute fracture or dislocation. Moderate t o severe tricompartmental joint space narrowing and osteophyte formation is seen. The patient is status post ACL repair. IMPRESSION: Moderate to severe left knee osteoarthritis.
== END 2019-04-05 09:38 | disposition home or self-care (01) ==
LOC: RAD 09:37
PROVIDERS: ATTEND Nurse Practitioner Family
DX: M54.5 Low back pain (principal); M25.561 Pain in right knee; M25.562 Pain in left knee; M47.816 Spondylosis without myelopathy or radiculopathy, lumbar region; M17.0 Bilateral primary osteoarthritis of knee
CPT/HCPCS: 72120

== ENCOUNTER 2019-04-28 14:10 | Emergency (ER) | payer OTHER ==
[2019-04-28 15:00] LABS: #Eosinphils 0.1 thou/uL (0.0-0.7); #Lymphocytes 1.8 thou/uL (1.20-3.40); #Monocytes 0.7 thou/uL (0.11-0.59); #Neutrophils 7.3 thou/uL (1.40-6.50); %Basophils 0.4 % (0.0-1.0); %Eosinophils 0.7 % (0.0-10.0); %Lymphocytes 18.3 % (21.0-51.0); %Monocytes 7.2 % (0.0-10.0); %Neutrophils 73.4 % (42.0-75.0); Hemoglobin 12.3 g/dL (12.0-16.0); Mean Corpuscular HGB CONC 32.1 g/dL (32.0-36.0); Mean Corpuscular Hemoglobin 28.7 pg (27.0-31.0); Mean Corpuscular Volume 89.3 fL (78.0-98.0); Mean Platelet Volume 8.1 fL (7.4-10.4); Platelet Count 195 thou/uL (130-400); RBC Distribution Width 12.8 % (11.5-14.5); Red Blood Cell (RBC) Count 4.29 mill/uL (4.20-5.40)
[2019-04-28] MEDS ORDERED: Acetaminophen 500 MG TAB ONE (15:07)
--- NOTE | 2019-04-28 15:10 | RAD ---
PORTABLE CHEST ONE VIEW: 04/28/19 at 2:30 p.m. HISTORY: Headache. Hypertension. FINDINGS: Comparison made with exam of 07/17/17. The heart size is borderline. The lungs are expanded without areas of consolidation, pneumothoraces, or pleural effusions. There are postop changes and metallic hardware in the cervical spine. IMPRESSION: No acute process. POS: [facility]
[2019-04-28 15:23] LABS: ALT (SGPT) 17 U/L (8-55); AST (SGOT) 12 U/L (5-34); Albumin 4.1 g/dL (3.5-5.0); Alkaline Phosphatase 77 U/L (40-110); Anion Gap 14 mmol/L (10-20); BUN (Urea Nitrogen) 21 mg/dL (9.8-20.1); Bilirubin, Total 0.3 mg/dL (0.2-1.2); CK (CPK) 126 U/L (29-168); Calc. Creatinine Clearance 0 mL/min (70-130); Calcium 8.9 mg/dL (7.8-10.44); Carbon Dioxide 22 mmol/L (22-29); Chloride 107 mmol/L (98-107); Estimated GFR-MDRD 85; Globulin 2.8 g/dL (2.4-3.5); Glucose 98 mg/dL (70-105); Potassium 4.2 mmol/L (3.5-5.1); Protein, Total 6.9 g/dL (6.0-8.3); Sodium 139 mmol/L (136-145)
== END 2019-04-28 15:44 | disposition home or self-care (01) ==
LOC: ERS 14:10
DX: I11.0 Hypertensive heart disease with heart failure (principal); I50.9 Heart failure, unspecified; E11.9 Type 2 diabetes mellitus without complications; Z79.82 Long term (current) use of aspirin; Z79.899 Other long term (current) drug therapy
CPT/HCPCS: 36415; 71045; 80053; 82550; 84484; 85025; 93005

== ENCOUNTER 2019-09-23 16:59 | Emergency (ER) | payer OTHER ==
[2019-09-23] MEDS ORDERED: Acetaminophen 500 MG TAB ONE (17:33)
--- NOTE | 2019-09-23 17:48 | RAD ---
Portable frontal chest radiograph: 09/23/2019 COMPARISON: 04/28/2019 HISTORY: Fevers with sore throat and cough FINDINGS: Heart and mediastinal contours are stable. Stable prominence of the cardiac silhouette. Sta ble incompletely imaged cervical fusion hardware present. No focal consolidation or alveolar edema. IMPRESSION: No focal consolidation or alveolar edema.
[2019-09-23 19:02] LABS: Bacteria/HPF None Seen HPF (None Seen); Bilirubin Negative (Negative); Blood, Urine 1+ (Negative); Clarity Clear (Clear); Glucose, Urine (Dipstick) Normal (Negative); Ketone, Urine Negative (Negative); Leukocyte Negative Leu/uL (Negative); Mucous/LPF 1+ LPF (<2+); Nitrite Negative (Negative); Protein, Urine (Dipstick) 30 mg/dL (Neg-Trace); Specific Gravity, Urine 1.018 (1.002-1.036); Squamous Epithelial 0-3 HPF (0-3); Urobilinogen Normal mg/dL (Less than 2); WBC/HPF 0-3 HPF (0-3)
[2019-09-23 19:22] LABS: #Lymphocytes 1.1 thou/uL (1.20-3.40); #Monocytes 0.4 thou/uL (0.11-0.59); #Neutrophils 3.3 thou/uL (1.40-6.50); %Eosinophils 0.3 % (0.0-10.0); %Lymphocytes 22.3 % (21.0-51.0); %Monocytes 7.5 % (0.0-10.0); %Neutrophils 68.9 % (42.0-75.0); Hemoglobin 12.2 g/dL (12.0-16.0); Mean Corpuscular HGB CONC 32.3 g/dL (32.0-36.0); Mean Corpuscular Hemoglobin 28.6 pg (27.0-31.0); Mean Corpuscular Volume 88.7 fL (78.0-98.0); Mean Platelet Volume 8.5 fL (7.4-10.4); Platelet Count 148 thou/uL (130-400); RBC Distribution Width 11.9 % (11.5-14.5); Red Blood Cell (RBC) Count 4.28 mill/uL (4.20-5.40); White Blood Cell (WBC) Count 4.8 thou/uL (4.8-10.8)
[2019-09-23 19:40] LABS: ALT (SGPT) 13 U/L (8-55); AST (SGOT) 14 U/L (5-34); Albumin 4.1 g/dL (3.5-5.0); Alkaline Phosphatase 77 U/L (40-110); Anion Gap 13 mmol/L (10-20); BUN (Urea Nitrogen) 9 mg/dL (9.8-20.1); Bilirubin, Total 0.4 mg/dL (0.2-1.2); Calc. Creatinine Clearance 0 mL/min (70-130); Calcium 8.4 mg/dL (7.8-10.44); Carbon Dioxide 24 mmol/L (22-29); Chloride 102 mmol/L (98-107); Estimated GFR-MDRD 84; Glucose 103 mg/dL (70-105); Potassium 4.4 mmol/L (3.5-5.1); Protein, Total 7.1 g/dL (6.0-8.3); Sodium 135 mmol/L (136-145)
[2019-09-25 12:29] LABS: SARS-CoV-2 MS2 Positive; SARS-CoV-2 N Gene Positive; SARS-CoV-2 S Gene Positive; SARS-CoV-2 orf1ab Positive
== END 2019-09-23 21:20 | disposition home or self-care (01) ==
LOC: ERS 16:59
DX: U07.1 COVID-19 (principal); M79.672 Pain in left foot; E11.9 Type 2 diabetes mellitus without complications; I11.0 Hypertensive heart disease with heart failure; I50.9 Heart failure, unspecified; Z79.899 Other long term (current) drug therapy; Z79.82 Long term (current) use of aspirin
CPT/HCPCS: 36415; 71045; 80053; 81003; 81015; 83605; 83880; 84484; 85025; 87635; 93005; U0003

== ENCOUNTER 2020-12-03 12:50 | Outpatient (CLI) | payer OTHER | END 2020-12-03 12:51 | disposition home or self-care (01) | LOC: ULT 12:50 | PROVIDERS: ATTEND Nurse Practitioner Family | DX: I10 Essential (primary) hypertension (principal) | CPT/HCPCS: 76770 ==

== ENCOUNTER 2021-11-17 22:04 | Emergency (ER) | payer OTHER ==
[2021-11-17] MEDS ORDERED: Lidocaine 1% PF 5 ML VIAL ONE (23:26)
[2021-11-18] MEDS ORDERED: HYDROcodone/Acetaminophen 5/325 mg Tablet ONE (00:38)
== END 2021-11-18 03:35 | disposition home or self-care (01) ==
LOC: ERS 22:04
DX: S52.572A Other intraarticular fracture of lower end of left radius, initial encounter for closed fracture (principal); I11.0 Hypertensive heart disease with heart failure; I50.9 Heart failure, unspecified; Z79.82 Long term (current) use of aspirin; Z79.899 Other long term (current) drug therapy; W19.XXXA Unspecified fall, initial encounter
CPT/HCPCS: 25600

== ENCOUNTER 2021-11-25 11:27 | Outpatient (CLI) | payer OTHER ==
[2021-11-25 12:56] LABS: Hemoglobin 10.5 g/dL (12.0-15.5); Mean Corpuscular HGB CONC 31.1 g/dL (32.0-36.0); Mean Corpuscular Volume 90.1 fl (81.6-98.3); Platelet Count 233 10x3/uL (150-450); RBC Distribution Width 13.7 % (11.5-14.5); Red Blood Cell (RBC) Count 3.75 10x6/uL (3.90-5.03); White Blood Cell (WBC) Count 6.3 10x3/uL (3.5-10.5)
[2021-11-25 13:09] LABS: Anion Gap 13 mmol/L (10-20); BUN (Urea Nitrogen) 19 mg/dL (9.8-20.1); Calc. Creatinine Clearance 0 mL/min (70-130); Calcium 8.8 mg/dL (7.8-10.44); Carbon Dioxide 25 mmol/L (22-29); Chloride 108 mmol/L (98-107); Estimated GFR 92; Glucose 100 mg/dL (70-105); Potassium 4.3 mmol/L (3.5-5.1); Sodium 142 mmol/L (136-145)
== END 2021-11-25 11:28 | disposition home or self-care (01) ==
LOC: LABBT 11:27
PROVIDERS: ATTEND Orthopaedic Surgery
DX: S52.502A Unspecified fracture of the lower end of left radius, initial encounter for closed fracture (principal); Z20.822 Contact with and (suspected) exposure to COVID-19
CPT/HCPCS: 80048; 85027; 87811; 93005; 93010

== ENCOUNTER 2021-11-26 10:03 | Day surgery (SDC) | payer OTHER ==
[2021-11-25 11:42] VITALS: BMI 57.5
[2021-11-26] MEDS ORDERED: Midazolam HCl 2 mg/2 ml Vial ONE (11:59)
[2021-11-26] MEDS ORDERED: Fentanyl 100 MCG/2 ML VIAL ONE (11:59)
[2021-11-26] MEDS ORDERED: fentaNYL Citrate/PF 100 MCG/2 ML SYRINGE ONE (12:06)
[2021-11-26] MEDS ORDERED: Sodium Chloride 0.9% 100 ML ONE (12:27)
[2021-11-26] MEDS ORDERED: CEFAZOLIN 2 GM VIAL ONE (12:27)
[2021-11-26] MEDS ORDERED: Ropivacaine 2% HCl/PF (20 MG/10 ML VIAL) ONE (12:36)
[2021-11-26] MEDS ORDERED: Phenylephrine 10 MG/ML VIAL ONE (12:36)
[2021-11-26] MEDS ORDERED: PROPOFOL 200 MG/20 ML VIAL ONE (12:36)
[2021-11-26] MEDS ORDERED: Ondansetron PF 4 MG/2 ML Vial ONE (12:36)
[2021-11-26] MEDS ORDERED: Bupivacaine HCl 0.5%/Epinephrine 1:200,000/PF 30 ml Vial ONE (12:36)
[2021-11-26] MEDS ORDERED: Dexamethasone 20 MG/5 ML VIAL ONE (12:36)
[2021-11-26] MEDS ORDERED: Lidocaine 1% MPF 2 ML VIAL ONE (12:36)
== END 2021-11-26 15:00 | disposition home or self-care (01) ==
LOC: SDC 10:03
PROVIDERS: ATTEND Orthopaedic Surgery
PROC: 3E0T3BZ Introduction of Anesthetic Agent into Peripheral Nerves and Plexi, Percutaneous Approach (ICD-10-PCS; principal; 2021-11-26)
PROC: 0PSJ04Z Reposition Left Radius with Internal Fixation Device, Open Approach (ICD-10-PCS; principal; 2021-11-26)
DX: S52.532A Colles' fracture of left radius, initial encounter for closed fracture (principal); I08.3 Combined rheumatic disorders of mitral, aortic and tricuspid valves; K76.0 Fatty (change of) liver, not elsewhere classified; R73.03 Prediabetes; I11.0 Hypertensive heart disease with heart failure; I50.40 Unspecified combined systolic (congestive) and diastolic (congestive) heart failure; I25.5 Ischemic cardiomyopathy; E78.5 Hyperlipidemia, unspecified; I25.10 Atherosclerotic heart disease of native coronary artery without angina pectoris; E66.01 Morbid (severe) obesity due to excess calories; Z68.43 Body mass index [BMI] 50.0-59.9, adult; Z79.82 Long term (current) use of aspirin; Z79.899 Other long term (current) drug therapy; Z98.1 Arthrodesis status; W01.0XXA Fall on same level from slipping, tripping and stumbling without subsequent striking against object, initial encounter
CPT/HCPCS: 76000; C1713; J0690; J1100; J2250; J2370; J2405; J2704; J2795; J3010; J3490

== ENCOUNTER 2024-03-02 12:31 | Outpatient (CLI) | payer OTHER | END 2024-03-02 12:32 | disposition home or self-care (01) | LOC: BICMAMMO 12:31 | PROVIDERS: ATTEND Nurse Practitioner Family | DX: Z12.31 Encounter for screening mammogram for malignant neoplasm of breast (principal); N63.20 Unspecified lump in the left breast, unspecified quadrant; R92.1 Mammographic calcification found on diagnostic imaging of breast | CPT/HCPCS: 77067 ==

== ENCOUNTER 2024-03-17 07:37 | Outpatient (CLI) | payer OTHER | END 2024-03-17 07:38 | disposition home or self-care (01) | LOC: BICMAMMO 07:37 | PROVIDERS: ATTEND Nurse Practitioner Family | DX: N63.25 Unspecified lump in the left breast, overlapping quadrants (principal); R92.1 Mammographic calcification found on diagnostic imaging of breast | CPT/HCPCS: G0279 ==

== ENCOUNTER → 2024-03-29 | Day surgery (SDC) | payer OTHER | LOC: BICULT 12:39 | PROVIDERS: ATTEND Nurse Practitioner Family | PROC: 0HBU3ZX Excision of Left Breast, Percutaneous Approach, Diagnostic (ICD-10-PCS; principal; 2024-03-29) | DX: C50.812 Malignant neoplasm of overlapping sites of left female breast (principal); Z17.0 Estrogen receptor positive status [ER+]; Z17.21 Progesterone receptor positive status; Z17.32 Human epidermal growth factor receptor 2 negative status | CPT/HCPCS: 19083; 19084; 76098; 88305; 88341; 88342 ==

== ENCOUNTER 2024-12-12 08:40 | Outpatient (CLI) | payer MEDICAID | END 2024-12-12 08:41 | disposition home or self-care (01) | LOC: BICMAMMO 08:40 | PROVIDERS: ATTEND Internal Medicine | DX: C50.412 Malignant neoplasm of upper-outer quadrant of left female breast (principal); Z17.0 Estrogen receptor positive status [ER+] | CPT/HCPCS: 77080 ==